=== PATIENT | female | born 1990 | race Caucasian/White ===

== ENCOUNTER 2022-09-17 12:25 | Outpatient (CLI) | payer OTHER, SELFPAY ==
--- NOTE | ~2022-09-17 | MMUS_ITS ---
EXAMINATION: MM diagnostic deb BI w ling, US breast LT limited HISTORY: Left breast mass seen on prior outside examination. Follow-up recommended. TECHNIQUE: Additional 3-D tomosynthesis images of the breasts were performed and synthetic 2-D images were generated. CAD analysis was submitted and interpreted. Limited left breast ultrasound. COMPARISON: None BREAST PARENCHYMAL COMPOSITION: Breast composed of scattered areas of fibroglandular density FINDINGS: There are no suspicious masses, calcifications or architectural distortion in the right laura ast to suggest malignancy. There is a small 5 mm mass in the upper outer quadrant of the left breast posteriorly, likely benign intramammary lymph node. Limited left breast ultrasound: Normal heterogeneous echotexture without focal solid or cystic mass. IMPRESSION: 1. Probable benign 5 mm left breast mass, upper outer quadrant. 2. Comparison outside mammograms recommended. BI-RADS Category 0: Incomplete: Needs additional imaging evaluation. Reviewed, dictated and finalized at location A. IMPRESSION: 1. Probable benign 5 mm left breast mass, upper outer quadrant. 2. Comparison outside mammograms recommended. BI-RADS Category 0: Incomplete: Needs additional imaging evaluation.
== END 2022-09-17 12:26 | disposition home or self-care (01) ==
LOC: ANHIMG 12:33
PROVIDERS: Visit Provider Nurse Practitioner Obstetrics & Gynecology
DX: R92.8 Other abnormal and inconclusive findings on diagnostic imaging of breast (principal)
CPT/HCPCS: 76642; 77062; 77066; G0279

== ENCOUNTER 2024-06-04 11:32 | Outpatient (CLI) | payer OTHER, SELFPAY ==
--- OUTSIDE RECORDS SUMMARY | 2024-06-13 10:48 | XMS_ITS | Data Portability ---
Author Organization [facility] [place] Address [address] [place] [address] Care Team Providers Care Oil Analyst Name Role Phone ORA MUSTAFA Primary Care Provider [phone] Assessment Encounter Date Assessment Date Assessment LastModified by Organization Details LastModified Time 05/24/2024 05/24/2024 Annual gynecological exam performed. Patient will come back in a year unless there are new symptoms. Not available 05/24/2024 16:14:33 Plan of Treatment Reminders Order Date Submit Date Provider Last Modified By Organization Details Last Modified Time Details Appointments IOP COLPO 2023 01:00P M Procedure Room Not available Not available Not available IOP COLPO 2023 01:00P M Ba MORA MD Not available Not available Not available Lab hbcab (hepatit is B core Ab) igm, serum 2023 024 [facility] (Lab), [address], [place], [address], 05/31/2024 04:07:55 HBsAg (hepatit is B surface Ag), serum 2023 024 [facility] (Lab), [address], [place], [address], 05/31/2024 04:07:55 hepatiti s C virus Ab, serum 2023 024 [facility] (Lab), [address], [place], [address], 05/31/2024 04:07:56 HIV 1+2 AB + HIV 1 p24 Ag, qualitat milton immunoas say, serum 2023 024 [facility] (Lab), [address], [place], [address], 05/31/2024 04:07:56 RPR (rapid plasma reagin), serum 2023 024 [facility] (Lab), [address], [place], [address], 05/31/2024 04:07:56 Referral None recorded . Procedures None recorded . Surgeries None recorded . Imaging MAMMO, diagnost ic, unilater al 2022 023 [facility], [address], [place], [address], 03/20/2023 05:00:54 US, breast, unilater al, w/ axilla 2022 023 [facility], [address], [place], [address], 03/20/2023 05:00:54 US, transvag inal 2022 023 [email or web address] [place], [facility] [address], [place], [address], 11/01/2022 20:46:34 MAMMO, diagnost ic, unilater al 2023 024 [facility], [address], [place], [address], 05/31/2024 04:07:55 US, breast, unilater al 2023 024 [facility], [address], [place], [address], 05/31/2024 04:07:55 Medication Orders Nexplano n 68 mg subderma l implant 2022 023 Not available 12/23/2022 13:36:48 estradio l 2 mg tablet 2022 023 [email or web address] [id number], [address] [place], [address], 05/24/2024 16:20:01 Patient TargetsNo targets recorded. Patient InstructionsNo instructions recorded. Reason for Referral None Reported. Results Created Date Observation Date Name Description Value Unit Range Abnormal Flag Note LastModifiedBy Organization Detail LastModifiedTime 05/24/2005/24/2024 IMAGE GUIDE D PAP AND HPV REGAR DLESS image guided Pap, HPV regardless of Pap result SEE RESULT S BELOW abnormal CASE REPOR T: Cytol ogy Gynec ologi ivan Repor t Case: [id number] Autho [email or web address] Provi magi: Margie Gtz, PATRICIO Colle cted: 05/24 1604 Order ing Locat ion: [place] [facility] Recei nuno: 05/25 0845 First Scree n: Maura Dinero Patho logis t: Brittnee Obregon MD Speci men: Johnmp brumfield Pap - Image d, Cervi x STATE MENT OF ADEQU ACY: Satis facto ry for evalu ation Trans forma tion zone compo nent absen t ----- ----- ----- ----- ----- ----- ----- ----- ----- ----- ----- ----- ----- ----- ----- ----- ----- ---- FINAL DIAGN OSIS: Epith elial Cell Abnor malit y, Squam ous Cell: Atypi ivan Squam ous Cells of Undet ermin ed Kane gibbs (ASC- US). 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 COMME NT: This speci men was revie wed by a Cytot echno logis t and/o r Patho logis t (as indic ated in this repor t) after evalu ation using the Thinp rep Imagi ng Syste m. CLINI IVAN INFOR MATIO N: Menst rual Statu s: LMP (if appli cable ): Clini ivan Histo ry/Pr eviou s Pap: Type of Neopl cristóbal (if appli cable ): Signi fican t Clini ivan Findi ngs: Other Histo ry: Hormo brinda (if appli cable ): RICHI DUMONT FOLLO W-UP: Follo w up as warra nted, based on curre nt guide lines and indiv idual patie nt consi derat ions. Not Available [facility] (Lab) [address], [place], [address], 06/04/2024 13:42:00 09/08/19 23 US, bredon t, bilat eral No observ ation record ed. [email or web address] Not Available 12:04:15 09/08/19 23 MAMMO , diagn ostic , bilat eral No observ ation record ed. [email or web address] Not Available 12:04:16 09/11/19 23 09/10/2022 US, kimmy s No observ ation record ed. [email or web address] [place] [address], [place], [address], 09/10/2022 13:34:23 09/11/19 23 09/10/2022 US, trans vagin al No observ ation record ed. [email or web address] [place] [address], [place], [address], 09/10/2022 13:34:14 09/11/19 23 09/10/2022 US, pelvi s No observ ation record ed. [email or web address] [address], [place], [address], 09/17/2022 10:26:16 10/26/19 23 09/17/2022 MAMMO , diagn ostic , digit al, bilat eral No observ ation record ed. [email or web address] [facility] [address], [place], [address], 11/01/2022 13:06:54 11/02/19 23 11/01/2022 US, trans vagin al No observ ation record ed. [place] [address], [place], [address], 11/01/2022 15:24:22 11/02/19 23 11/01/2022 US, trans vagin al No observ ation record ed. JAYASHREE [address], [place], [address], 11/04/2022 20:53:02 Result Notes None recorded. Procedures Surgical History Date Name Laterality Status Provider Name and Address Organization Details Recorded Time 05/24/20 Date of Last Pap Smear completed Freida Salazar [facility] 06/05/2024 18:52:45 12/24/19 Control Implant Removal completed Joycelyn Driver [facility]- [address], [place], [address], [facility] 12/23/2022 13:32:43 12/24/19 23 Control Implant Insertion completed Joycelyn Driver [facility]- [address], [place], [address], [place] [facility] 12/23/2022 13:32:36 10/15/19 22 Date of Last Mammogram completed [facility] 09/06/2022 11:20:16 10/15/19 22 completed [facility] 09/06/2022 11:20:16 11/19/19 21 Colposcopy completed Freida Salazar [facility] 06/05/2024 18:53:05 06/20/19 16 Colposcopy completed Freidacady Salazar [facility] 06/05/2024 18:54:35 Imaging Results Imaging Date Name Status LastModified by Organization Details LastModified Time 09/07/2022 US, breast, bilateral completed Information not available 09/13/2022 12:04:15 09/07/2022 MAMMO, diagnostic, bilateral completed Information not available 09/13/2022 12:04:16 09/10/2022 US, pelvis completed [email or web address] [place] [address], [place], [address], 09/10/2022 13:34:23 09/10/2022 US, transvaginal [email or web address] [facility] [address], [place], [address], 09/10/2022 13:34:14 09/10/2022 US, pelvis completed [email or web address] [address], [facility], [place], [address], 09/17/2022 10:26:16 09/17/2022 MAMMO, diagnostic, digital, bilateral completed [email or web address] [facility] [address], [place], [address], 11/01/2022 13:06:54 11/01/2022 US, transvaginal completed [facility]rik [facility] [address], [place], [address], 11/01/2022 15:24:22 11/01/2022 US, transvaginal completed JAYASHREE [address], [place], [address], 11/04/2022 20:53:02 Procedure Notes None recorded. Medical Equipment None Reported. Allergies No known drug allergies Medications Name Sig Start Date Stop Date Status Note LastModified by Organization Details LastModified Time lamotrigine 200 mg tablet TAKE 1 TABLET BY MOUTH EVERY DAY active Not Available Not Available No t Available fluconazole 150 mg tablet TAKE 1 TABLET (150 MG TOTAL) BY MOUTH ONCE FOR 1 DOSE. 02/24 completed Not Available Not Available Not Available meloxicam 15 mg tablet active Not Available Not Available Not Available trazodone 100 mg tablet 02/24 completed Not Available Not Available Not Available estradiol 2 mg tablet TAKE 1 TABLET BY MOUTH EVERY DAY WITH MEALS FOR 20 DAYS 05/24 completed Not Available Not Available Not Available hydroxyzine HCl 25 mg tablet 02/24 completed Not Available Not Available Not Available cefdinir 300 mg capsule TAKE 1 CAPSULE BY MOUTH 2 TIMES A DAY FOR 5 DAYS. 02/24 completed Not Available Not Available Not Available lamotrigine 100 mg tablet Take 100 mg twice a day by oral route. active Not Available Not Available No t Available progesteron e micronized 100 mg capsule TAKE 1 CAPSULE BY MOUTH EVERY DAY AT BEDTIME FOR 30 DAYS 05/24 completed Not Available Not Available Not Available aripiprazol e 5 mg tablet active Not Available Not Available Not Available bupropion HCl XL 150 mg 24 hr tablet, extended release active Not Available Not Available Not Available aripiprazol e 2 mg tablet TAKE 1 TABLET BY MOUTH EVERYDAY AT BEDTIME active Not Available Not Available No t Available Nexplanon 68 mg subdermal implant Inject 1 implant every day by subcutane ous route as directed. 2022 active Not Available Not Available Not Avai lable Nexplanon 02/24 completed Not Available Not Available Not Available BinaxNOW COVID-19 Ag Self Test kit FOLLOW INSTRUCTI ONS INCLUDED WITH THE PACKAGE. 09/06 completed Not Available Not Available Not Available Vitals Date Recorded Body height Body mass index (BMI) Body weight Systolic blood pressure Diastolic blood pressure Provider Name and Address Organization Details Last Updated DateTime 09/13/2022 172.72 cm 44.7 kg/m2 286346.1 6 g 132 mm[Hg] 78 mm[Hg] Renetta Stallings [facility] 10:04:20 Date Recorded Body height Body mass index (BMI) Body weight Provider Name and Address Organization Details Last Updated DateTime 12/23/2022 172.72 cm 45.2 kg/m2 293480.93 g Geetha Chappell [facility] 12/23/2022 12:26:35 Date Recorded Systolic blood pressure Diastolic blood pressure Provider Name and Address Organization Details Last Updated DateTime 12/23/2022 128 mm[Hg] 78 mm[Hg] Joycelyn Driver [facility]- [address], [place], [address] 12/23/2022 13:25:05 Date Recorded Body height Body mass index (BMI) Body weight Provider Name and Address Organization Details Last Updated DateTime 02/24/2023 172.72 cm 45 kg/m2 358242.34 g Geetha Chappell [facility] 02/24/2023 18:02:31 Date Recorded Systolic blood pressure Diastolic blood pressure Provider Name and Address Organization Details Last Updated DateTime 02/24/2023 122 mm[Hg] 80 mm[Hg] Joycelyn Driver [facility]- [address], [place], [address] 02/24/2023 18:17:34 Date Recorded Body height Body mass index (BMI) Body weight Systolic blood pressure Diastolic blood pressure Provider Name and Address Organization Details Last Updated DateTime 05/24/2024 172.72 cm 50 kg/m2 154257.8 9 g 137 mm[Hg] 80 mm[Hg] Amada Leigh [facility] 16:19:52 Social History Question Answer Notes LastModified by Organizat ion Details LastModified Time Tobacco Smoking Status Never Smoker Mary Ellen Weller swetha, [facility] 09/10/2022 12:11:31 Do You Have An Advance Directive? No Information n ot available 09/06/2022 What Is Your Level Of Alcohol Consumption? Moderate Information not available 09/06/2022 How Many Years Have You Consumed Alcohol? 30 Information not available 09/06/2022 Are You Blind Or Do You Have Difficulty Seeing? No Information n ot available 09/06/2022 What Is Your Level Of Caffeine Consumption? Heavy Information not available 09/06/2022 How Much Tobacco Do You Chew? None Information not available 09/06/2022 In The 14 Days Before Symptom Onset, Have You Had Close Contact With A Laboratory-confirm ed COVID-19 While That Case Was Ill? No Information n ot available 09/06/2022 In The 14 Days Before Symptom Onset, Have You Had Close Contact With A Person Who Is Under Investigation For COVID-19 While That Person Was Ill? No Information not available 09/06/2022 Have You Been To An Area Known To Be High Risk For COVID-19? No Information not available 09/06/2022 Are You Deaf Or Do You Have Serious Difficulty Hearing? No Information not available 09/06/2022 What Type Of Diet Are You Following? REGULAR Information n ot available 09/06/2022 What Is The Highest Grade Or Level Of School You Have Completed Or The Highest Degree You Have Received? 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 No Information not available 09/06/2022 Do You Use Protection During Sex? Always Information not available 09/06/2022 Do You Use Your Seat Belt Or Car Seat Routinely? Yes Information not available 09/06/2022 Do You Have Smoke And Carbon Monoxide Detectors In Your Home? Yes Information not available 09/06/2022 At What Age Did You Start Smoking Tobacco? 0 Information not available 09/06/2022 How Much Tobacco Do You Smoke? No Information not available 09/06/2022 Do You Feel Stressed (tense, Restless, Nervous, Or Anxious, Or Unable To Sleep At Night)? [id number] Information not available 09/06/2022 Do You Use Any Illicit Or Recreational Drugs? No Information not available 09/06/2022 Do You Use Sunscreen Routinely? Yes Information not available 09/06/2022 How Many Years Have You Smoked Tobacco? 0 Information not available 09/06/2022 Have You Used IV Drugs? No Information not available 09/06/2022 Sex: Unknown Functional Status Question Answer Note LastModified by Organizat ion Details LastModified Time Do you have difficulty walking or climbing stairs? No [email or web address] Information not available 09/10/2022 Are you able to walk? YESWOREST Information not available 09/06/2022 Are you able to care for yourself? Yes [email or web address] Information not available 09/10/2022 Do you have difficulty dressing or bathing? No [email or web address] Information not available 09/10/2022 What is your exercise level? Moderate Information not available 09/06/2022 Mental Status None recorded. Family History Relationship Description Onset Age of this Age Resolved Age Notes LastModified by Organization Details LastModified Time Paternal Grandfather Myocardial infarction [email or web address] Not available 12/23 12:26:46 Maternal Grandmother Disorder of thyroid gland [email or web address] Not available 2022 12:26:46 Mother Anxiety disorder [email or web address] Not available 2022 12:26:46 Mother Depressive disorder [email or web address] Not available 2022 12:26:46 Mother Hypertensive disorder [email or web address] Not available 2022 12:26:46 Mother Heart disease [email or web address] Not available 2022 12:26:46 Sister Anxiety disorder [email or web address] Not available 2022 12:26:46 Sister Depressive disorder [email or web address] Not available 2022 12:26:46 Paternal Grandmother Malignant tumor of breast [email or web address] Not available 2022 12:26:46 Maternal Aunt Malignant tumor of cervix [email or web address] Not available 2022 12:26:46 Father Hypertensive disorder [email or web address] Not available 2022 12:26:46 Father Heart disease [email or web address] Not available 2022 12:26:46 Father Diabetes mellitus [email or web address] Not available 2022 12:26:46 Maternal Grandfather Heart disease [email or web address] Not available 2022 12:26:46 Medical History Condition Response Allergies (Food, seasonal, environmental ) N Other N Breast Cancer N Drug/Latex Allergies/Reactions N Blood Transfusion N Dermatologic Disorders N Lung Disease N Defects or Inherited Disease N Breast Problem N Gestational Diabetes N Hematologic disorders N Anesthesia Complications N History of STI N Deep Vein Thrombosis N Polycystic ovary syndrome N Anxiety Disorder Y Autoimmune disease N Arthritis N Infertility N Polyps N Acid Reflux (GERD) N History of abnormal pap Y Cancer N Stroke N Varicosities N Neurologic/Epilepsy N Endometriosis N High Cholesterol N Headaches N Fibromyalgia N Kidney Disease N Heart Problems N Kidney or Bladder Problems N Thyroid Problems N GI Problems N Eating Disorder N Anemia N Art (IVF or FET) N Psychiatric Illness Y Ovarian Cancer N Diabetes N Pulmonary (TB, Asthma) N Hepatitis/Liver Disease N No Past Medical History N Eczema N Urinary Tract Infection N Abuse/Domestic Violence N Asthma N Trauma/Violence N Depression/ depression Y Heart Disease N Pre-Eclampsia N Hypertension N Osteoporosis N Thrombophilias N Gynecological History Statement/Question Response Date of Last Mammogram 10/14/2021 Flow Moderate Date of LMP 05/10/2024 N Was last menstrual period normal N STIs/STDs N 10/14/2021 Date of control 01/08/2020 Multiple Methods Desired Control Method Implant Abnormal Pap Y On BCP's at Conception? N Colposcopy 11/18/2020 HPV Vaccine N Duration of Flow (days) 7 Current Control Method Implant Age at First Child 1 Are cycles usually normal N Frequency of Cycle (Q days) 13 Sexually Active? Y Menses Monthly Y Age of first menstrual cycle 9 Date of Last Pap Smear 05/24/2024 Sexual Problems? N LMP Approximate 07/25/2019 Obstetrics History GPAL:G 0 P 0 0 0 0 Past Encounters Encounter ID Performer Location Encounter Start Date Encounter Closed Date Diagnosis/Indication Diagnosis SNOMED-CT Code Diagnosis ICD10 Code [id number] Joycelyn Driver [facility] [address] [address] 09/06/2022 11:17:47 09/08/2022 16:35:13 Abnormal uterine bleeding 1088724645 9100 N93.9 Cyst of right breast 431 8011560 1970538 N60.01 [id number] [facility] [address] [address] 09/10/2022 12:10:59 09/10/2022 13:27:41 Abnormal uterine bleeding 5234209249 9100 N93.9 [id number] Joycelyn Driver [facility] [address],[place] [address] 09/13/2022 09:56:47 09/13/2022 10:45:16 Cyst of right ovary 2437737453 2967160 N83.201 Mass of left breast 1224 600054 5747195 N63.20 [id number] [facility] [address],[place] [address] 11/01/2022 09:02:49 11/01/2022 09:34:26 Cyst of right ovary 0993159509 3212447 N83.201 [id number] Joycelyn Driver [facility] [address],[place] [address] 12/23/2022 12:14:23 12/23/2022 13:36:02 Removal of subcutaneous contraceptive 224926873 Z30.46 Insertion of subcutaneous contraceptive 352567461 Z30.9 [id number] Joycelyn Driver [facility] [address],[place] [address] 02/24/2023 17:53:21 02/25/2023 12:28:13 Contraception care management 169695965 Z30.9 [id number] RANJANA Alonso [place] [address] [address] 05/24/2024 16:08:59 05/25/2024 09:39:56 Gynecologic examination 43055033 Z01.419 Breast lump 67142753 N63 .0 Venereal d isease screening 602557303 Z11.3 Sexually t ransmitted infectious disease 9623632 A64 Contracept ion care management 464760765 Z30.9 Health Concerns Section Related Observation LastModified by Organization Detai ls LastModified Time None Recorded Concern Status LastModified by Organization Details LastModified Time None Recorded Advance Directives Directive N: Payers Encounter Date Sequence Insurance Name Policy Number Policy Oakes Covered Member ID Oakes Member ID Guarantor Name 09/13/2022 1 [facility] [employer] Lupana Amaya [id number] OI Lupana R Amaya 11/01/2022 1 [facility] [employer] Lupana Amaya [id number] OI Lupana R Amaya 12/23/2022 1 [facility] [employer] Lupana Amaya [id number] OI Lupana R Amaya 02/24/2023 1 [facility] [employer] Lupana Amaya [id number] OI Lupana R Amaya 05/24/2024 1 [facility] [employer] Lupana Amaya [id number] OI Lupana R Amaya Notes Date Note Type Note Provider Name and Address Organization Details Recorded Time 12/23/2022 text/html Here today for nexplanon removal/resinsertio n. RANJANA Holliday-ANKIT [address], [place], [address], [facility] 12/23/2022 13:34:58 02/24/2023 text/html Here today for complaints of BTB/extended menstrual bleeding since placement of nexplanon. Neg pain of abd/pelvis/flankNeg urinary sx'sNeg GI sx'sNeg N/V/F/C/DNeg Vag d/c, odor, irritation, itching RANJANA Holliday-[facility] [address], [place], [address], [place] [facility] 02/24/2023 18:19:24 05/24/2024 text/html Annual GYNReport ed bypatient.Menstrual cycle:Normal menses Urinary symptoms:No hematuria; No incontinence Vulva:No genital lesion Vagina:Normal vaginal discharge Breast:No breast pain; No breast lump; No nipple discharge Current Contraception:Subde rmal contraceptive implant Sexual complaints:No sexual complaints; No pain during intercourse; Normal libido Menopausal Symptoms:No menopausal symptoms; Normal vaginal lubrication Psychological symptoms:No depression; No anxiety; No PMDD Preventive measures:Encourage self breast examination; Encourage regular exercise; Encourage no tobacco use; Encourage regular mammograms starting age 39Notes:33yo wweBC - nexplanon, inserted 12/23/2022last pap 2020, abnormal per pt requiring colposcopy (we do not have these records)left breast lump noted on imaging 08/2022 : due for f/u 6 month imaging periods irregular with nexplanon, wants to discuss other options RANJANA Alonso [address], [place], [address], [place] [facility] 05/25/2024 09:15:11 OBGyn Episode No OBEpisode recorded.
--- OUTSIDE RECORDS SUMMARY | 2024-06-13 10:49 | XMS_ITS | Encounter Summary ---
Author Organization [facility] Address [address] [facility] [facility] [address] [place] [address] Care Team Providers Care Specialty Foods Cook Name Role Phone Bhupendra Pacheco MD Primary Care Provider [phone] Encounter Details Date Type Department Care Team (Late st Contact Info) Description 03/25/2022 Orders Only [facility] Primary Care at [address] [place] [address] Bhupendra Pacheco MD [address] [place] [address] [address] [place] [address] Bipolar II disorder (CMS/HCC) (HCC) (Primary Dx); Family planning; Cervical cancer screening Social History Tobacco Use Types Packs/Day Years Used Date Smoking Tobacco: Never PHQ-2 Answer Date Recorded PHQ-2 Total Score (If total score is 3 or more points, staff should administer the PHQ-9) 0 03/25/2022 Comments No Sex and Gender Information Value Date Recorded Sex Assigned at Not on file Legal Sex Female 12:24 PM CDT Gender Identity Not on file Sexual Orientation Not on file documented as of this encounter Plan of Treatment Not on file documented as of this encounter Visit Diagnoses Diagnosis Bipolar II disorder (CMS/HCC) (HCC)- Primary Other bipolar disorders Family planning Other general counseling and advice for contraceptive management Cervical cancer screening Screening for malignant neoplasm of the cervix documented in this encounter Care Teams Specialty Foods Cook Relationship Specialty Start Date End Date Bhupendra Pacheco MD PCP - General Family Medicine 03/25/22 documented as of this encounter
--- OUTSIDE RECORDS SUMMARY | 2024-06-13 10:49 | XMS_ITS | Encounter Summary ---
Author Organization [facility] Healthcare Address [address] [place] [address] Care Team Providers Care Infrastructure Design Engineer Name Role Phone Bhupendra Pacheco MD Primary Care Provider [phone] Encounter Details Date Type Department Care Team (Late st Contact Info) Description 05/04/2024 8:15 AM TELESERVICES REPRESENTATIVE Lab [facility] Outpatient Lab at [address] [address] Class 3 severe obesity due to excess calories without serious comorbidity with body mass index (BMI) of 40.0 to 44.9 in adult (HCC) (Primary Dx) Social History Tobacco Use Types Packs/Day Years [...] as of this encounter Visit Diagnoses Diagnosis Class 3 severe obesity due to excess calories without serious comorbidity with body mass index (BMI) of 40.0 to 44.9 in adult (HCC)- Primary documented in this encounter Care Teams Infrastructure Design Engineer Relationship Specialty Start Date End Date Bhupendra Pacheco MD PCP - General Family Medicine 03/25/22 documented as of this encounter
--- OUTSIDE RECORDS SUMMARY | 2024-06-13 10:49 | XMS_ITS | Encounter Summary ---
Author Organization [facility] Address [address] [facility] [address] [place] [address] Care Team Providers Care Mechanical Research Engineer Name Role Phone Bhupendra Pacheco MD Primary Care Provider [phone] Encounter Details Date Type Department Care Team (Late st Contact Info) Description 02/08/2023 Orders Only [facility] Outpatient Center [place] [address] [place] [address] Jennifer Tesfaye NP [phone] [address] Yeast infection (Primary Dx) Social History Tobacco Use Types [...] on file documented as of this encounter Ordered Prescriptions Prescription Sig Dispense Quantity Refills Last Filled Start Date End Date fluconazole (DIFLUCAN) 150 mg tabletIndications: Yeast infection Take 1 tablet (150 mg total) by mouth once for 1 dose 1 tablet 02/08/2023 02/08/2023 documented in this encounter Plan of Treatment Not on file documented as of this encounter Visit Diagnoses Diagnosis Yeast infection- Primary documented in this encounter Care Teams Mechanical Research Engineer Relationship Specialty Start Date End Date Bhupendra Pacheco MD PCP - General Family Medicine 03/25/22 documented as of this encounter
--- OUTSIDE RECORDS SUMMARY | 2024-06-13 10:49 | XMS_ITS | Encounter Summary ---
Author Organization [facility] Healthcare Address [address] [place] [address] Care Team Providers Care Pharmacist Per Diem Name Role Phone Bhupendra Pacheco MD Primary Care Provider [phone] Reason for Visit * Reason Comments Abdominal Pain Nausea and left uppe r quadrant pain after eating. Encounter Details Date Type Department Care Team (Late st Contact Info) Description 03/19/2024 3:45 PM CDT Office Visit [facility] at [address] [address] Karthikeyan Tejeda, PATRICIO [address] [place] [address] [address] [place] [address] Left upper quadrant pain (Primary Dx); Nausea Social History Tobacco Use Types Packs/Day Years [...] on file documented as of this encounter Last Filed Vital Signs Vital Sign Reading Time Taken Comments Blood Pressure 140/88 03/19/2024 3:32 PM CDT Pulse 88 03/19/2024 3:32 PM CDT Temperature 37.1 ??C (98.7 ??F) 03/19/2024 3:32 PM CD T Respiratory Rate 20 03/19/2024 3:32 PM CDT Oxygen Saturation 98% 03/19/2024 3:32 PM CDT Inhaled Oxygen Concentration - - Weight 136.1 kg (300 lb) 03/19/2024 3:32 PM CDT Height 174 cm (5' 8.5 ) 03/19/2024 3:32 PM CDT Body Mass Index 44.95 03/19/2024 3:32 PM CDT documented in this encounter Patient Instructions * Patient Instructions* Karthikeyan Tejeda NP - 03/19/2024 3:45 PM CDT If you have no improvement or worsening of your symptoms, please follow up with your Primary Care Provider, [facility] and or Emergency Room. I strive to provide you with EXCELLENT service. You may receive a survey after your visit today. If you cannot rate your experience as EXCELLENT, please let us know how we can improve and better meet your needs. Thank you for choosing [facility]! It was my pleasure to see you today, I hope you feel better soon! Karthikeyan Tejeda MULTI SPINDLE OPERATOR documented in this encounter Ordered Prescriptions Prescription Sig Dispense Quantity Refills Last Filled Start Date End Date ondansetron (ZOFRAN) 4 mg tabletIndications: Nausea Take 1 tablet (4 mg total) by mouth every 8 (eight) hours as needed for nausea or vomiting for up to 5 days 15 tablet 03/19/2024 4 documented in this encounter Progress Notes * Karthikeyan Tejeda NP - 03/19/2024 3:45 PM CDT Images from the original note were not included. Subjective/Objective Patient ID: Kinga Amaya is a 33 y.o. female. Chief Complaint Abdominal Pain (Nausea and left upper quadrant pain after eating. /) Pt presents to [facility] Abdominal Pain This is a new problem. Episode onset: Two days ago. The onset quality is sudden. The problem occursdaily. The problem has been waxing and waning. The pain is located in the LUQ. The pain is moderate. The abdominal pain does not radiate. Associated symptoms include nausea and vomiting (Tuesday morning only). Pertinent negatives include no constipation, diarrhea or fever. The pain is aggravated by eating. The pain is relieved by Nothing. Treatments tried: Omeprazole and Tums. The treatment provided mild relief. Her past medical history is significant for GERD. Review of Systems Constitutional: Negative for fever. Gastrointestinal: Positive for abdominal pain, nausea and vomiting (Tuesday morning only). Negative for abdominal distention, blood in stool, constipation, diarrhea and rectal pain. Genitourinary: Negative. All other systems reviewed and are negative. Physical Exam Vitals and nursing note reviewed. Constitutional: General: She is awake. She is not in acute distress. Appearance: Normal appearance. She is not ill-appearing. HENT: Head: Normocephalic and atraumatic. Cardiovascular: Rate and Rhythm: Normal rate and regular rhythm. Heart sounds: Normal heart sounds. Pulmonary: Effort: Pulmonary effort is normal. Breath sounds: Normal breath sounds. Abdominal: General: Abdomen is protuberant. Bowel sounds are normal. Palpations: Abdomen is soft. Tenderness: There is abdominal tenderness in the left upper quadrant. There is no right CVA tenderness, left CVA tenderness, guarding or rebound. Neurological: Mental Status: She is alert and oriented to person, place, and time. Gait: Gait is intact. Gait normal. Psychiatric: Mood and Affect: Mood normal. Behavior: Behavior normal. Behavior is cooperative. Vitals: 03/19/24 1532 BP: 140/88 Pulse: 88 Resp: 20 Temp: 37.1 ??C (98.7 ??F) SpO2: 98% Weight: 136.1 kg (300 lb) Height: 174 cm (5' 8.5 ) No results found. Past Medical History: Diagnosis Date Allergic Anxiety Bipolar 2 disorder ([facility]) ([facility]) Eczema Patient Active Problem List Diagnosis Bipolar II disorder ([facility]) ([facility]) Class 3 severe obesity due to excess calories without serious comorbidity with body mass index (BMI) of 40.0 to 44.9 in adult ([facility]) Morbid obesity with BMI of 40.0-44.9, adult ([facility]) Current Outpatient Medications: ARIPiprazole (ABILIFY) 2 mg tablet, Take 1 tablet (2 mg total) by mouth nightly, Disp: , Rfl: buPROPion XL (WELLBUTRIN XL) 150 mg 24 hr tablet, Take 1 tablet (150 mg total) by mouth daily, Disp: , Rfl: etonogestreL (Nexplanon) 68 mg implant, by subdermal route, Disp: , Rfl: hydrOXYzine (ATARAX) 25 mg tablet, Take 1 tablet (25 mg total) by mouth every 8 (eight) hours as needed for anxiety, Disp: , Rfl: lamoTRIgine (LaMICtal) 100 mg tablet, Take 1 tablet (100 mg total) by mouth 2 (two) times a day, Disp: 60 tablet, Rfl: 2 omeprazole (PriLOSEC) 40 mg capsule, Take 1 capsule (40 mg total) by mouth daily, Disp: , Rfl: traZODone (DESYREL) 100 mg tablet, Take 1 tablet (100 mg total) by mouth nightly, Disp: , Rfl: meloxicam (MOBIC) 15 mg tablet, TAKE 1 TABLET BY MOUTH EVERY DAY WITH FOOD (Patient not taking: Reported on 03/19/2024), Disp: 30 tablet, Rfl: 0 ondansetron (ZOFRAN) 4 mg tablet, Take 1 tablet (4 mg total) by mouth every 8 (eight) hours as needed for nausea or vomiting for up to 5 days, Disp: 15 tablet, Rfl: 0 No Known Allergies Social History Tobacco Use Smoking status: Never Smokeless tobacco: Not on file Substance and Sexual Activity Drug use: Never Sexual activity: Yes Partners: Male control/protection: Implant Alcohol Use: Not At Risk (07/25/2019) Received from [employer] [employer] Frequency of Alcohol Consumption: Never Average Number of Drinks: Not on file Frequency of Binge Drinking: Not on file No past surgical history on file. Assessment/Plan Diagnoses and all orders for this visit: Left upper quadrant pain (Primary) Nausea - ondansetron (ZOFRAN) 4 mg tablet; Take 1 tablet (4 mg total) by mouth every 8 (eight) hours as needed for nausea or vomiting for up to 5 days -discussed with patient I recommend she call tomorrow to schedule follow-up with PCP further this week. -discussed red flag symptoms for patient to go to emergency room with any new or worsening symptomssuch as fever, increased pain, vomiting, unable to keep liquids down for 24 hours etc.. Patient Education: Follow up with PCP this week Go to ED with any new or worsening symptoms. Disposition Treatment plan including expectations, follow up, and return precautions discussed with patient/parent, verbalizes understanding. Medication dosage, use, and potential adverse reactions discussed with patient/parent. Advised to follow up with PCP if symptoms do not resolve as expected or sooner if condition worsens. Signs/symptoms warranting ER evaluation reviewed. Patient and/or guardian was given an opportunity to ask questions, questions answered. Karthikeyan Tejeda NP This office note has been partially dictated using HZO software, and as a result portions of the record may have been created with this software. Occasional wrong-word or '[id number]' substitutions may have occurred due to the inherent limitations of voice recognition software. Read the chartcarefully and recognize, using context, where substitutions have occurred. documented in this encounter Plan of Treatment Not on file documented as of this encounter Visit Diagnoses Diagnosis Left upper quadrant pain- Primary Abdominal pain, left upper quadrant Nausea Nausea alone documented in this encounter Care Teams Pharmacist Per Diem Relationship Specialty Start Date End Date Bhupendra Pacheco MD PCP - General Family Medicine 03/25/22 documented as of this encounter
--- OUTSIDE RECORDS SUMMARY | 2024-06-13 10:49 | XMS_ITS | Encounter Summary ---
Author Organization [facility] Address [address] [facility] [address] [place] [address] Care Team Providers Care Bacon Skinner Name Role Phone Bhupendra Pacheco MD Primary Care Provider [phone] Encounter Details Date Type Department Care Team (Late st Contact Info) Description 02/08/2023 Orders Only [facility] Outpatient Center [place] [id number] [place] [address] Jennifer Tesfaye NP [address] [address] Acute cystitis with hematuria (Primary Dx) Social History Tobacco Use Types [...] Refills Last Filled Start Date End Date cefdinir (OMNICEF) 300 mg capsuleIndications :Acute cystitis with hematuria Take 1 capsule (300 mg total) by mouth 2 (two) times a day for 5 days 10 capsule 02/08/2023 3 documented in this encounter Plan of Treatment Not on file documented as of this encounter Visit Diagnoses Diagnosis Acute cystitis with hematuria- Primary documented in this encounter Care Teams Bacon Skinner Relationship Specialty Start Date End Date Bhupendra Pacheco MD PCP - General Family Medicine 03/25/22 documented as of this encounter
--- OUTSIDE RECORDS SUMMARY | 2024-06-13 10:49 | XMS_ITS | Encounter Summary ---
Author Organization [facility] Address [address] [facility] [address] [place] [address] Care Team Providers Care Aircraft Life Support Fitter Name Role Phone Bhupendra Pacheco MD Primary Care Provider [phone] Encounter Details Date Type Department Care Team (Late st Contact Info) Description 03/31/2022 Telephone [facility] Primary Care at [address] [place] [address] Bhupendra Pacheco MD [address] [place] [address] [address] [place], [place] [address] Social History Tobacco Use Types Packs/Day Years [...] on file documented as of this encounter Miscellaneous Notes * Telephone Encounter - Saundra Tsai MA - 03/31/2022 3:34 PM CDT Bhupendra Pacheco MD P Bjg Im/Fm Pcp [facility] Clinical Pool Normal blood work, no concerns Pt aware * Telephone Encounter - Saundra Tsai MA - 03/31/2022 3:34 PM CDT ----- Message from Bhupendra Pacheco MD sent at 03/31/2022 10:03 AM CDT ----- Normal elbow xray, no significant findings, pain is likely muscle or nerve related, may just take time to improve documented in this encounter Plan of Treatment Not on file documented as of this encounter Visit Diagnoses Not on filedocumented in this encounter Care Teams Aircraft Life Support Fitter Relationship Specialty Start Date End Date Bhupendra Pacheco MD PCP - General Family Medicine 03/25/22 documented as of this encounter
--- OUTSIDE RECORDS SUMMARY | 2024-06-13 10:49 | XMS_ITS | Encounter Summary ---
Author Organization [facility] Healthcare Address [address] [place] [address] Care Team Providers Care Blister Packing Machine Tender Name Role Phone Bhupendra Pacheco MD Primary Care Provider [phone] Encounter Details Date Type Department Care Team (Latest Contact Info) Description 02/06/2023 2:49 PM CDT - 02/06/2023 11:59 PM CDT Hospital Encounter [address] [address] Vaginal spotting; Abdominal cramping Discharge Disposition: Discharge to home or self care Social History Tobacco Use Types Packs/Day Years [...] on file documented as of this encounter Medications at Time of Discharge ARIPiprazole (ABILIFY) 2 mg tablet Take 1 tablet (2 mg total) by mouth nightly 02/02/2023 etonogestreL (Nexplanon) 68 mg implant by subdermal route 12/23/2022 hydrOXYzine (ATARAX) 25 mg tablet Take 1 tablet (25 mg total) by mouth every 8 (eight) hours as needed for anxiety lamoTRIgine (LaMICtal) 100 mg tablet Take 1 tablet (100 mg total) by mouth 2 (two) times a day 60 tablet 2 08/27/2022 omeprazole (PriLOSEC) 40 mg capsule Take 1 capsule (40 mg total) by mouth daily traZODone (DESYREL) 100 mg tablet Take 1 tablet (100 mg total) by mouth nightly documented as of this encounter Discharge Disposition Disposition Code Departure Means Destination Discharge to home or self care documented in this encounter Miscellaneous Notes * Result Encounter Note - Shannon Kline MA - 02/06/2023 11:59 PM CDT Patient verified that she is not or * Result Encounter Note - Jennifer Tesfaye NP - 02/06/2023 11:59 PM CDT Please call patient to alert her that urine culture was positive for a urinary tract infection. Antibiotic sent to pharmacy on file. Please start this today. She should f/u with PCP if s/s persist. * Result Encounter Note - Shannon Kline MA - 02/06/2023 11:59 PM CDT Pt has started ABX documented in this encounter Plan of Treatment Not on file documented as of this encounter Procedures Procedure Name Priority Date/Time Associated Diagnosis Comments N. GONORRHOEAE/C. TRACHOMATIS AMPLIFICATION Routine 02/06/2023 2:49 PM CDT Vaginal spotting Abdominal cramping VAGINITIS PANEL Routine 02/06/2023 2:49 PM CDT Vaginal spotting Abdominal cramping URINE CULTURE Routine 02/06/2023 2:49 PM CDT Vaginal spotting Abdominal cramping documented in this encounter Results * (ABNORMAL) Urine culture Urine, clean voided (02/06/2023 2:49 PM CDT) Report Final Report: Less than 100,000 colonies/mL (clinically insignificant growth based on current clinical standards) Includes the following: Less than 100,000 colonies/mL Streptococcus agalactiae (Group B Streptococci) * ??* ??* ??* ??* ??* ??* ??* ??* ??* ??* ??* ??* ??* ??* ??* ??* ??* ??* ??* Resistance to penicillin in Group B Streptococcus has not been reported. ??Group B Streptococci are universally susceptible to beta-lactam antibiotics and vancomycin. Routine susceptibility testing is not performed. In penicillin allergic patients, please contact the laboratory at [phone] to request susceptibility testing * ??* ??* ??* ??* ??* ??* ??* ??* ??* ??* ??* ??* ??* ??* ??* ??* ??* ??* ??* This laboratory routinely screens urine cultures for any amount of Group B Streptococcus in reproductive age women. ??Recovery of this isolate may be significant in women, however, the recovery of this organism in small quantities in non- women represents contamination with periurethral neil. (.) [facility] Comment:Testing performed by : [facility], [address] [place]., [address] Organism STREPTOCOCCUS AGALACTIAE (GROUP B STREPTOCOCCI) MAGGY Organism (CLINICALLY INSIGNIFICANT GROWTH [facility] Urine, clean voided 02/06/2023 2:49 PM CDT 02/06/2023 7:57 PM CDT Narrative [facility] - 02/08/2023 11:14 AM CDT Testing performed by [facility] ([phone]) us Karthikeyan Tejeda NP LAB MICROBIOLOGY - GENERAL JACKIE RANGEL Final Result [facility] [id number] Department [place] [address] * N. gonorrhoeae/C. trachomatis Amplification Urine (02/06/2023 2:49 PM CDT) C. trachomatis source urine [facility] C. trachomatis RNA Negative Negative [facility] Comment: ADDITIONAL INFORMATION This report is intended for use in clinical monitoring and management of patients. It is not intended for use in medical-legal applications. N. gonorrhoeae source urine [facility] N. gonorrhoeae RNA Negative Negative [facility] Comment: ADDITIONAL INFORMATION This report is intended for use in clinical monitoring and management of patients. It is not intended for use in medical-legal applications. Test Performed by: [place] [id number] Flat Polisher: Zackery Oneill M.D. Ph.D.; CLIA# [id number] Urine (None) 02/06/2023 2:49 PM CDT 02/06/2023 4:38 PM CDT Karthikeyan Tejeda NP LAB MICROBIOLOGY - GENERAL JACKIE RANGEL Final Result [facility] [id number] [address] Department [place] [address] * (ABNORMAL) Vaginitis panel Vaginal (02/06/2023 2:49 PM CDT) [facility] Saumya DNA probe Detected(A) Not Detected [facility] Comment:Testing performed by : [facility], [address] [place] [address], [place]., [address] Gardnerella DNA probe Not Detected Not Detected [facility] Comment:Testing performed by : [facility], [address] [place] [address]., [address] Trichomonas DNA probe Not Detected Not Detected [employer] [facility] [facility] Comment: Interpretive Data Testing performed by [facility] via [employer] VPIII Microbial Identification Test, a DNA probe test for use in the detection and identification of Saumya species, Gardnerella vaginalis and Trichomonas vaginalis nucleic acid in vaginal fluid specimens from patients with symptoms of vaginitis/vaginosis. Negative results for these tests suggest the patient does not have candidiasis, bacterial vaginosis and/or trichomoniasis when consistent with clinical signs and symptoms. Current interpretive data was last revised on 2020. Testing performed by: [facility], [facility] [facility], [place]., [address] Vaginal 02/06/2023 2:49 PM CDT 02/07/2023 1:28 PM CDT Karthikeyan Tejeda NP LAB MICROBIOLOGY - GENERAL JACKIE RANGEL Final Result [facility] [id number] [address] Department [place] [address] documented in this encounter Visit Diagnoses Diagnosis Vaginal spotting Other specified noninflammatory disorder of vagina Abdominal cramping Abdominal pain, unspecified site documented in this encounter Care Teams Blister Packing Machine Tender Relationship Specialty Start Date End Date Bhupendra Pacheco MD PCP - General Family Medicine 03/25/22 documented as of this encounter
--- OUTSIDE RECORDS SUMMARY | 2024-06-13 10:49 | XMS_ITS | Referral Summary ---
Author Organization [facility] Address [address] [address] Phone Care Team Providers Care Sign Erector Name Role Phone Bhupendra Pacheco MD Primary Care Provider [phone] Encounters Date Type Department Care Team Description 05/04/2024 6:46 PM RESIDENTIAL THERAPIST - 05/04/2024 11:59 PM RESIDENTIAL THERAPIST Hospital Encounter [address] [address] Exposure to syphilis Discharge Disposition: Discharge to home or self care 05/04/2024 8:15 AM RESIDENTIAL THERAPIST Lab [facility] Outpatient Lab at [address] [address] Class 3 severe obesity due to excess calories without serious comorbidity with body mass index (BMI) of 40.0 to 44.9 in adult (HCC) (Primary Dx) 05/03/2024 7:27 PM RESIDENTIAL THERAPIST - 05/03/2024 11:59 PM RESIDENTIAL THERAPIST Hospital Encounter [address] [address] Exposure to syphilis Discharge Disposition: Discharge to home or self care 05/03/2024 7:15 PM RESIDENTIAL THERAPIST Office Visit [facility] Convenient Care at [address] [address] Danielle Patel NP Exposure to syphilis (Primary Dx) 03/19/2024 3:45 PM CDT Office Visit [facility] Convenient Care at [address] [address] Tejeda, Ranita, SUPERVISOR OF OPERATIONS Left upper quadrant pain (Primary Dx); Nausea from Last 3 Months Allergies No known active allergies Medications hydrOXYzine (ATARAX) 25 mg tablet Take 1 tablet (25 mg total) by mouth every 8 (eight) hours as needed for anxiety Active traZODone (DESYREL) 100 mg tablet Take 1 tablet (100 mg total) by mouth nightly Active omeprazole (PriLOSEC) 40 mg capsule Take 1 capsule (40 mg total) by mouth daily Active lamoTRIgine (LaMICtal) 100 mg tablet Take 1 tablet (100 mg total) by mouth 2 (two) times a day 60 tablet 2 08/28/19 23 Active ARIPiprazole (ABILIFY) 2 mg tablet Take 1 tablet (2 mg total) by mouth nightly 02/03/20 23 Active etonogestreL (Nexplanon) 68 mg implant by subdermal route 12/24/19 23 Active buPROPion XL (WELLBUTRIN XL) 150 mg 24 hr tablet Take 1 tablet (150 mg total) by mouth daily 11/23/19 24 Active meloxicam (MOBIC) 15 mg tabletIndications:Left foot pain,Capsulitis of metatarsophalangeal (MTP) joint of left foot TAKE 1 TABLET BY MOUTH EVERY DAY WITH FOOD 30 tablet 01/27/20 24 Active Additional Information Patient not taking.Reported on 03/19/2024 Active Problems Problem Noted Date Diagnosed Date Bipolar II disorder ([facility]) 03/25/2022 Assessment & Plan (03/25/2022 2:13 PM CDT): Stable at this time. Will continue current regimen, and refer to psych to get her established. Class 3 severe obesity due t o excess calories without serious comorbidity with body mass index (BMI) of 40.0 to 44.9 in adult 03/25/2022 Assessment & Plan (03/25/2022 2:24 PM CDT): BMI Follow-up includes: nutrition counseling and exercise counseling. Morbid obesity with BMI of 40.0-44.9, adult 11/2021 Assessment & Plan (03/25/2022 2:24 PM CDT): Not at goal. Diet and lifestyle changes recommended Immunizations Name Administration Dates Next Due Influenza, Unspecified 03/25/2022(Deferr ed: Patient Refused),08/19/2021(Deferred: Patient Refused) Moderna SARS-CoV-2 Monovalen t Vaccination (12+ YRS) 08/27/2020,07/28/2020 Social History Tobacco Use Types Packs/Day Years Used Date Smoking Tobacco: Never Tobacco Cessation:Counseling Given: Not Answered PHQ-2 Answer Date Recorded PHQ-2 Total Score (If total score is 3 or more points, staff should administer the PHQ-9) 0 03/25/2022 Comments No Sex and Gender Information Value Date Recorded Sex Assigned at Not on file Legal Sex Female 12:24 PM CDT Gender Identity Not on file Sexual Orientation Not on file Last Filed Vital Signs Vital Sign Reading Time Taken Comments Blood Pressure 136/86 05/03/2024 7:15 PM RESIDENTIAL THERAPIST Pulse 78 05/03/2024 7:15 PM RESIDENTIAL THERAPIST Temperature 36.8 ??C (98.3 ??F) 05/03/2024 7:15 PM CS T Respiratory Rate 20 05/03/2024 7:15 PM RESIDENTIAL THERAPIST Oxygen Saturation 99% 05/03/2024 7:15 PM RESIDENTIAL THERAPIST Inhaled Oxygen Concentration - - Weight 136.1 kg (300 lb) 05/03/2024 7:15 PM RESIDENTIAL THERAPIST Height 175.3 cm (5' 9 ) 05/03/2024 7:15 PM RESIDENTIAL THERAPIST Body Mass Index 44.3 05/03/2024 7:15 PM RESIDENTIAL THERAPIST Plan of Treatment Not on file Procedures Procedure Name Priority Date/Time Associated Diagnosis Comments HIV 1/2 ANTIBODY PLUS P24 ANTIGEN Routine 05/04/2024 8:26 AM RESIDENTIAL THERAPIST Exposure to syphilis RPR Routine 05/04/2024 8:26 AM RESIDENTIAL THERAPIST Exposure to syphilis HEPATITIS PANEL, ACUTE Routine 8:26 AM RESIDENTIAL THERAPIST Exposure to syphilis VAGINITIS PANEL Routine 05/03/2024 7:27 PM RESIDENTIAL THERAPIST Exposure to syphilis N. GONORRHOEAE/C. TRACHOMATIS AMPLIFICATION Routine 05/03/2024 7:27 PM RESIDENTIAL THERAPIST Exposure to syphilis from Last 3 Months Results * HIV 1/2 Antibody plus p24 Antigen Blood (05/04/2024 8:26 AM RESIDENTIAL THERAPIST) HIV 1/2 ab + p24 ag Nonreactive Nonreactive Comment: Nonreactive for HIV-1 antigen and HIV-1/HIV-2 antibodies. No laboratory evidence of HIV infection. If acute HIV infection is suspected, consider testing for HIV-1 RNA. Blood 05/04/2024 8:26 AM RESIDENTIAL THERAPIST 05/04/2024 7:24 PM RESIDENTIAL THERAPIST us Danielle Patel NP LAB MICROBIOLOGY - GENERAL ORDERABLES Final Result [facility] [address] Department [place] [address] * Hepatitis panel, acute Blood (05/04/2024 8:26 AM RESIDENTIAL THERAPIST) Pathologist [facility] Hep A IgM Nonreactive Nonreactive Comment: Interpretive Data: If Hep A IgM Ab is reported as Equivocal, a new sample should be drawn in two weeks for testing. Current interpretive data was last revised on 19. Hep B core IgM Nonreactive Nonreactive [facility] Comment: Interpretive Data If HepB Core IgM Ab is reported as Equivocal, a new sample should be drawn in two weeks for testing. Current interpretive data was last revised on 19. Hep C Ab Nonreactive Nonreactive [facility] Comment: Interpretive Data Nonreactive: Antibodies to HCV not detected. Does NOT exclude the possibility of recent exposure to HCV. Equivocal: Equivocal for HCV antibodies. Supplemental molecular testing will be automatically performed to determine infection status in accordance with current CDC screening recommendations. ?? Reactive: Positive for HCV antibodies. ??This may represent current or past HCV infection. Supplemental molecular testing will be automatically performed to determine ??current infection status in accordance with current CDC screening recommendations. Interpretive data was last revised on 2019. HepBsAg Nonreactive Nonreactive [facility] Blood 05/04/2024 8:26 AM RESIDENTIAL THERAPIST 05/04/2024 7:24 PM RESIDENTIAL THERAPIST Danielle Patel NP LAB MICROBIOLOGY - GENERAL ORDERABLES Final Result Performing Organization Address City/[facility] Co de Phone Number TISHAZORAN ZHOU [address] [facility] [place] [address] * RPR Blood (05/04/2024 8:26 AM RESIDENTIAL THERAPIST) RPR Nonreactive Nonreactive Blood 05/04/2024 8:26 AM RESIDENTIAL THERAPIST 05/04/2024 7:24 PM RESIDENTIAL THERAPIST Danielle Patel NP LAB MICROBIOLOGY - GENERAL ORDERABLES Final Result Performing Organization Address [facility] de Phone Number TISHAZORAN ZHOU [address] [facility] [place] [address] * N. gonorrhoeae/C. trachomatis Amplification Vaginal (05/03/2024 7:27 PM RESIDENTIAL THERAPIST) C. trachomatis Not Detected [facility] Comment:Testing performed by : [facility], [address] [place] [address]., [address] N. gonorrhoeae Not Detected [facility] Comment: Interpretive Data This assay detects Chlamydia trachomatis and Neisseria gonorrhoeae by nucleic acid amplification testing (NAAT). This assay has been cleared by the [place] Food and Drug administration. The performance characteristics of this test have been verified by the [facility] Molecular Infectious Disease laboratory. The performance characteristics of this test have not been evaluated in individuals less than 14 years of age. Current Interpretive Data was last revised on 2023. Testing performed by: [facility], [address] [place] [address]., [id number] Vaginal (None) 05/03/2024 7: 27 PM RESIDENTIAL THERAPIST 05/04/2024 10:43 AM RESIDENTIAL THERAPIST Danielle Patel NP LAB MICROBIOLOGY - GENERAL ORDERABLES Final Result Performing Organization Address City/[facility] Co de Phone Number [facility] WINNIE [address] Department [place] [address] [facility] * Vaginitis panel Vaginal (05/03/2024 7:27 PM RESIDENTIAL THERAPIST) Saumya DNA probe Not Detected Not Detected Comment:Testing performed by : [facility], [address] [place] [address]., [address] Gardnerella DNA probe Not Detected Not Detected [facility] Comment:Testing performed by : [facility], [address] [place] [address]., [address] Trichomonas DNA probe Not Detected Not Detected [facility] Comment: Interpretive Data Testing performed by [facility] via Affirm VPIII Microbial Identification Test, a [...] last revised on 2020. Testing performed by: [facility], [address] [place] [address]., [address] Vaginal 05/03/2024 7:27 PM RESIDENTIAL THERAPIST 05/04/2024 1:04 PM RESIDENTIAL THERAPIST Danielle Patel NP LAB MICROBIOLOGY - GENERAL ORDERABLES Final Result [facility] [address] Department [place] [address] from Last 3 Months [facility] [id number] Member Subscriber Plan / Payer (Ef fective 2021-Present) Name:Kinga Amaya Member ID:[id number] Relation to Subscriber:Self Name:Kinga Amaya Subscriber ID:[id number] Payer ID:[id number] Type:[employer] HMO/PPO Address: [address] [place] [id number] [facility] [address] Care Teams Sign Erector Relationship Specialty Start Date End Date Bhupendra Pacheco MD PCP - General Family Medicine 03/25/22
--- OUTSIDE RECORDS SUMMARY | 2024-06-13 10:49 | XMS_ITS | Continuity of Care Document ---
Author Organization [facility] [place] Address [address] [place] [address] Care Team Providers Care Student Life Coordinator Name Role Phone ORA MUSTAFA Primary Care Provider Assessment Encounter Date Assessment Date Assessment LastModified by Organization Details LastModified Time 05/24/2024 05/24/2024 Annual gynecological exam performed. Patient will come back in a year unless there are new symptoms. [email or web address] Not available 05/24/2024 16:14:33 Plan of Treatment Reminders Order Date Submit Date Provider Last Modified By Organization Details Last Modified Time Details Appointments IOP COLPO 2023 01:00P M Procedure Room Not available Not available Not available IOP COLPO 2023 01:00P M Ba MORA MD Not available Not available Not available Lab hbcab (hepatit is B core Ab) igm, serum 2023 024 [facility] (Lab), [address], [place], [address], 05/31/2024 04:07:55 HBsAg (hepatit is B surface Ag), serum 2023 024 [facility] (Lab), [address], [place], [address], 05/31/2024 04:07:55 hepatiti s C virus Ab, serum 2023 024 [facility] (Lab), [address], [place], [address], 05/31/2024 04:07:56 HIV 1+2 AB + HIV 1 p24 Ag, qualitat milton immunoas say, serum 2023 024 [facility] (Lab), [address] [facility] [address], [place], [address], 05/31/2024 04:07:56 RPR (rapid plasma reagin), serum 2023 024 [facility] (Lab), [address], [place], [address], 05/31/2024 04:07:56 Referral None recorded . Procedures None recorded . Surgeries None recorded . Imaging MAMMO, diagnost ic, [facility] 2023 [facility], [address], [address], [place], [address], 05/31/2024 04:07:55 US, breast, [facility] 2023 024 [facility], [address], [address], [place], [address], 05/31/2024 04:07:55 Medication Orders None recorded . Patient TargetsNo targets recorded. Patient InstructionsNo instructions recorded. Reason for Referral None Reported. Procedures Surgical History Date Name Laterality Status Provider Name and Address Organization Details Recorded Time 05/24/20 24 Date of Last Pap Smear completed Freida Salazar [facility] 06/05/2024 18:52:45 12/24/19 23 Control Implant Removal completed Joycelyn Driver [facility] [address], [place], [address], [facility] 12/23/2022 13:32:43 12/24/19 23 Control Implant Insertion completed Joycelyn Driver [facility] [address], [place], [address], [facility] 12/23/2022 13:32:36 10/15/19 22 Date of Last Mammogram completed [facility] 09/06/2022 11:20:16 10/15/19 22 completed [facility] 09/06/2022 11:20:16 11/19/19 21 Colposcopy completed [facility] 06/05/2024 18:53:05 06/20/19 16 Colposcopy completed [facility] 06/05/2024 18:54:35 Imaging Results None recorded. Procedure Notes None recorded. Medical Equipment None [...] Updated DateTime 05/24/2024 172.72 cm 50 kg/m2 757751.8 9 g 137 mm[Hg] 80 mm[Hg] Amada Leigh [facility] 16:19:52 Social History Question Answer Notes LastModified by Organizat ion Details LastModified Time Tobacco Smoking Status Never Smoker Mary Ellen Weller [email or web address], [facility] 09/10/2022 12:11:31 Do You Have An [...] Or The Highest Degree You Have Received? 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 [id number] Information not available 09/06/2022 Do You Use [...] have difficulty walking or climbing stairs? No [email or web address] Information not available 09/10/2022 Are you able to walk? YESWOREST Information not available 09/06/2022 Are you able to care for yourself? Yes [email or web address] Information not available 09/10/2022 Do you have difficulty dressing or bathing? No [email or web address] Information not available 09/10/2022 What is your [...] Diagnosis/Indication Diagnosis SNOMED-CT Code Diagnosis ICD10 Code 197581 RANJANA Alonso [place] [address] [address] 05/24/2024 16:08:59 05/25/2024 09:39:56 Gynecologic examination 72991375 Z01.419 Breast lump 72140252 N63 .0 Venereal d isease screening 143662842 Z11.3 Sexually t ransmitted infectious disease 3462829 A64 Contracept ion care management 723693066 Z30.9 Health Concerns Section Related Observation LastModified by Organization Detai ls LastModified Time None Recorded Concern Status LastModified by Organization Details LastModified Time None Recorded Payers Encounter Date Sequence Insurance Name Policy Number Policy Oakes Covered Member ID Oakes Member ID Guarantor Name 05/24/2024 1 [facility] Kinga Amaya [id number] OI Kinga Amaya Notes Date Note Type Note Provider Name and Address Organization Details Recorded Time 05/24/2024 text/html Annual GYNReport ed bypatient.Menstrual cycle:Normal [...] to discuss other options RANJANA Alonso [address], [place], [address], [facility] [place] 05/25/2024 09:15:11 OBGyn Episode No OBEpisode recorded.
--- OUTSIDE RECORDS SUMMARY | 2024-06-13 10:49 | XMS_ITS | Encounter Summary ---
Author Organization [facility] Address [address] [place] [address] Care Team Providers Care Shoe Associate Name Role Phone Bhupendra Pacheco MD Primary Care Provider [phone] Encounter Details Date Type Department Care Team (Late st Contact Info) Description 03/26/2022 Telephone [facility] Primary Care at [address] [place] [address] Bhupendra Pacheco MD [address] [place] [address] [address] [place], [place] [id number] Social History Tobacco Use Types Packs/Day Years [...] encounter Miscellaneous Notes * Telephone Encounter - Kimmie Kat MA - 03/30/2022 8:43 AM CDT RG requesting last 5 yrs. * Telephone Encounter - Kimmie Kat MA - 03/26/2022 10:42 AM CDT Please advise. * Telephone Encounter - Padmini Aguilar - 03/26/2022 10:36 AM CDT RG: For the records request for this pt, how far back do you want me to go? And are you wanting allrecords or just specific things? Please advise. documented in this encounter Plan of Treatment Not on file documented as of this encounter Visit Diagnoses Not on filedocumented in this encounter Care Teams Shoe Associate Relationship Specialty Start Date End Date Bhupendra Pacheco MD PCP - General Family Medicine 03/25/22 documented as of this encounter
--- OUTSIDE RECORDS SUMMARY | 2024-06-13 10:49 | XMS_ITS | Encounter Summary ---
Author Organization [facility] Address [address] [place] [address] Care Team Providers Care Medical Logistics Specialist Name Role Phone Bhupendra Pacheco MD Primary Care Provider [phone] Reason for Visit * Diagnostic Imaging (Routine) - Closed Specialty Diagnoses / Procedures Referred By Vasquez t Referred To Contact Diagnoses Left foot pain Procedures XR Foot Left 3 or More Views Gloria Kwon MD Phone: tel: fax: [facility] Referral ID Status Reason Start Date Expiration Date Visits Re quested Visits Authorized [id number] Closed 12/30/2023 01/28/2025 1 1 Encounter Details Date Type Department Care Team (Late st Contact Info) Description 12/30/2023 12:30 PM CDT Ancillary Procedure [facility] Imaging at [address] [address] Left foot pain Social History Tobacco Use Types Packs/Day Years [...] Procedure Name Priority Date/Time Associated Diagnosis Comments XR FOOT LEFT 3 OR MORE VIEWS Schedule Routine, Read Routine (OP Routine) 12/30/2023 12:00 PM CDT Left foot pain documented in this encounter Results * XR Foot Left 3 or More Views (12/30/2023 12:00 PM CDT) Anatomical Region Laterality Modality Lower Extremities, Foot Left Digital Radiography 01/01/2024 9:31 AM CDT Narrative 01/01/2024 9:32 AM CDT EXAM DESCRIPTION: XR FOOT LEFT 3 OR MORE VIEWS REASON FOR STUDY: pain ?? Pt complains of 2nd metatarsal pain after walking around two weeks ago. No prior surgery to the foot. Pt states the toe ring can't come off ? FINDINGS: Three views nonweightbearing submitted without comparison. No acute fractures are identified. ??There is mild midfoot osteoarthritis. ?? There is mild 1st metatarsophalangeal joint osteoarthritis. ??Small heel spur is present. IMPRESSION: No acute fracture. ??If persistent clinical concern for an occult stress fracture, may consider further evaluation with MRI. ?? 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 THIS IS AN ELECTRONICALLY VERIFIED FINAL REPORT 01/01/2024 9:32 AM - Electronically signed by ??Ady Ashby M.D. D: ??01/01/2024 9:32 AM T: Report ID: [id number] Reading Location: ??[id number] Procedure Note Ady Ashby MD - 01/01/2024 EXAM DESCRIPTION: XR FOOT LEFT 3 OR MORE VIEWS REASON FOR STUDY: pain Pt complains of 2nd metatarsal pain after walking around two weeks ago. No prior surgery to the foot. Pt states the toe ring can't come off FINDINGS: Three views nonweightbearing submitted without comparison. No acute fractures are identified. There is mild midfoot osteoarthritis. There is mild 1st metatarsophalangeal joint osteoarthritis. Small heelspur is present. IMPRESSION: No acute fracture. If persistent clinical concern for an occult stress fracture, may consider further evaluation with MRI. 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 THIS IS AN ELECTRONICALLY VERIFIED FINAL REPORT 01/01/2024 9:32 AM - Electronically signed by Ady Ashby M.D. T: Report ID: [id number] Reading Location: [id number] Gloria Kwon MD IMG XR PROCEDURES Rose l Result documented in this encounter Visit Diagnoses Diagnosis Left foot pain Pain in soft tissues of limb documented in this encounter Care Teams Medical Logistics Specialist Relationship Specialty Start Date End Date Bhupendra Pacheco MD PCP - General Family Medicine 03/25/22 documented as of this encounter
--- OUTSIDE RECORDS SUMMARY | 2024-06-13 10:49 | XMS_ITS | Encounter Summary ---
Author Organization [facility] Address [address] [place] [address] Care Team Providers Care Business Law Professor Name Role Phone Bhupendra Pacheco MD Primary Care Provider [phone] Reason for Visit * Reason Onset Date Comments Medical Question/Miscellaneous 07/26/2022 Call Back 07/26/2022 Encounter Details Date Type Department Care Team (Late st Contact Info) Description 07/26/2022 Telephone [facility] Primary Care at [address] [place] [address] Bhupendra Pacheco MD [address] [place] [address] [address] [place] [address] Medical Question/Miscellaneous ; Call Back Social History Tobacco Use Types Packs/Day Years [...] encounter Miscellaneous Notes * Telephone Encounter - Shira Anthony - 07/26/2022 2:40 PM CST Call Back Caller???s Concern: Behavior Health told patient they only scheduled 2 weeks out in advance. She has to call every day to try to get an appt. Caller???s Call back #: [phone]. Does message need to be routed? Yes-Action Needed N RESOURCES COMPENSATION ANALYST * Telephone Encounter - Clarisa Vidal MA - 07/26/2022 2:11 PM CST Attempted to contact Kinga with no answer. LMOM to contact the office back. If Kinga calls back, r/s her till after her appt with behavior health. N RESOURCES COMPENSATION ANALYST * Telephone Encounter - Clarisa Vidal MA - 07/26/2022 1:[address] Pacheco please review message regarding r/s appt if needed? N RESOURCES COMPENSATION ANALYST * Telephone Encounter - Pascual Lee - 07/26/2022 1:39 PM CST Call Back Caller???s Concern: Patient was able to reach behavioral health but was unable to schedule as they only schedule two week out. She has a follow up appt set for 07/27/[address] Pacheco, does she need to reschedule this appt until she can be seen in [facility]. Patient requesting call back. Sending high priority Caller???s Call back #: [phone] Does message need to be routed? Yes-Action Needed N RESOURCES COMPENSATION ANALYST documented in this encounter Plan of Treatment Not on file documented as of this encounter Visit Diagnoses Not on filedocumented in this encounter Care Teams Business Law Professor Relationship Specialty Start Date End Date Bhupendra Pacheco MD PCP - General Family Medicine 03/25/22 documented as of this encounter
--- OUTSIDE RECORDS SUMMARY | 2024-06-13 10:49 | XMS_ITS | Encounter Summary ---
Author Organization [facility] Healthcare Address [address] [place] [id number] Care Team Providers Care Patrol Community Service Officer Name Role Phone Bhupendra Pacheco MD Primary Care Provider [phone] Reason for Visit * Reason Comments STI Screening Was exposed to syphi lis. Entered by patient Encounter Details Date Type Department Care Team (Late st Contact Info) Description 05/03/2024 7:15 PM MOTORMAN/WOMAN Office Visit [facility] at [address] [address] Danielle Patel, TOBACCO STEMMER [address] [place] [id number] Exposure to syphilis (Primary Dx) Social History Tobacco Use Types [...] Comments Blood Pressure 136/86 05/03/2024 7:15 PM MOTORMAN/WOMAN Pulse 78 05/03/2024 7:15 PM MOTORMAN/WOMAN Temperature 36.8 ??C (98.3 ??F) 05/03/2024 7:15 PM CS T Respiratory Rate 20 05/03/2024 7:15 PM MOTORMAN/WOMAN Oxygen Saturation 99% 05/03/2024 7:15 PM MOTORMAN/WOMAN Inhaled Oxygen Concentration - - Weight 136.1 kg (300 lb) 05/03/2024 7:15 PM MOTORMAN/WOMAN Height 175.3 cm (5' 9 ) 05/03/2024 7:15 PM MOTORMAN/WOMAN Body Mass Index 44.3 05/03/2024 7:15 PM MOTORMAN/WOMAN documented in this encounter Patient Instructions * Patient Instructions* Danielle Patel NP - 05/03/2024 7:15 PM MOTORMAN/WOMAN If you have no improvement or worsening of your symptoms, please follow up with your Primary Care Provider, Pending [facility] To [facility] and or Emergency Room. I strive to provide you with EXCELLENT service. You may receive a survey after your visit today. If you cannot rate your experience as EXCELLENT, please let us know how we can improve and better meet your needs. Thank you for choosing [facility]! It was my pleasure to see you today, I hope you feel better soon! Danielle Patel EAR FLAP BINDER If your testing for syphilis is negative, recommend retesting at 6 and 12 months to rule out. RMAN/WOMAN * Attachments The following attachments cannot be sent through Care Everywhere. * Syphilis (AfterCare(R) Instructions(ER/ED)) ([facility]) documented in this encounter Progress Notes * Danielle Patel NP - 05/03/2024 7:15 PM CST Images from the original note were not included. Subjective/Objective Patient ID: Kinga Amaya is a 33 y.o. female. Chief Complaint STI Screening (Was exposed to syphilis. Entered by patient) 33 year old female patient presents today with complaints of wanting STI testing. Patient denies any active symptoms. Reports she was told by a previous partner 1 week ago that she was possibly exposed to syphilis. Reports that she had intercourse with this person 2 months ago. Patient reports no chance of , has a Nexplanon. Review of Systems All other systems reviewed and are negative. Physical Exam Vitals reviewed. Constitutional: Appearance: Normal appearance. She is normal weight. HENT: Head: Normocephalic. Right Ear: External ear normal. Left Ear: External ear normal. Nose: Nose normal. Mouth/Throat: Mouth: Mucous membranes are moist. Eyes: Extraocular Movements: Extraocular movements intact. Cardiovascular: Rate and Rhythm: Normal rate. Pulses: Normal pulses. Pulmonary: Effort: Pulmonary effort is normal. Musculoskeletal: General: Normal range of motion. Cervical back: Normal range of motion. Skin: General: Skin is warm and dry. Capillary Refill: Capillary refill takes less than 2 seconds. Neurological: General: No focal deficit present. Mental Status: She is alert and oriented to person, place, and time. Mental status is at baseline. Psychiatric: Mood and Affect: Mood normal. Behavior: Behavior normal. Thought Content: Thought content normal. Judgment: Judgment normal. Vitals: 05/03/24 1915 BP: 136/86 BP Location: Left arm Patient Position: Sitting Pulse: 78 Resp: 20 Temp: 36.8 ??C (98.3 ??F) TempSrc: Oral SpO2: 99% Weight: 136.1 kg (300 lb) Height: 175.3 cm (5' 9 ) No results found. Past Medical History: Diagnosis Date Allergic Anxiety Bipolar 2 disorder (CMS/HCC) ([facility]) Eczema Current Outpatient Medications: ARIPiprazole (ABILIFY) 2 mg [...] on 03/19/2024), Disp: 30 tablet, Rfl: 0 No Known Allergies Social History Tobacco Use Smoking status: Never Smokeless tobacco: Not on file Substance and Sexual Activity Drug use: Never Sexual activity: Yes Partners: Male control/protection: Implant Alcohol Use: Not At Risk (07/25/2019) Received from [employer] [facility] Frequency of Alcohol Consumption: Never Average Number of Drinks: Not on file Frequency of Binge Drinking: Not on file No past surgical history on file. Procedures Assessment/Plan No results found for this or any previous visit (from the past 4 hours). Diagnoses and all orders for this visit: Exposure to syphilis (Primary) - Hepatitis panel, acute Blood; Future - RPR Blood; Future - HIV 1/2 Antibody plus p24 Antigen Blood; Future - N. gonorrhoeae/C. trachomatis Amplification Vaginal; Future - Vaginitis panel Vaginal; Future Plan: Patient self swabbed for vaginal specimens. We will return tomorrow for blood work. Discussedwith patient we can either have her return to the clinic for Bicillin injection versus give her oral doxycycline b.i.d. times 14 days. Patient verbalizes understanding. Discussed with patient if her RPR is negative, recommend repeating the test at 6 and 12 months. Disposition Treatment plan including expectations, follow up, and return precautions discussed with patient/parent, verbalizes understanding. Medication dosage, use, and potential adverse reactions discussed with patient/parent. Advised to follow up with PCP if symptoms do not resolve as expected or sooner if condition worsens. Signs/symptoms warranting ER evaluation reviewed. Patient and/or guardian was given an opportunity to ask questions, questions answered. Danielle Patel NP RMAN/WOMAN documented in this encounter Miscellaneous Notes * Addendum Note - Bruna Thornotn - 05/03/2024 7:15 PM CSTAddended by: BRUNA THORNTON on: 05/04/2024 08:25 AM Modules accepted: Orders RMAN/WOMAN documented in this encounter Plan of Treatment Not on file documented as of this encounter Results * Hepatitis panel, acute Blood (05/04/2024 8:26 AM MOTORMAN/WOMAN) Hep A IgM Nonreactive Nonreactive Comment: Interpretive Data: If Hep A IgM Ab is reported as Equivocal, a new sample should be drawn in two weeks for testing. Current interpretive data was last revised on 19. Hep B core IgM Nonreactive Nonreactive [facility] Comment: Interpretive Data If HepB Core IgM Ab is reported as Equivocal, a new sample should be drawn in two weeks for testing. Current interpretive data was last revised on 19. Hep C Ab Nonreactive Nonreactive [facility] Comment: Interpretive Data Nonreactive: Antibodies [...] last revised on 2019. HepBsAg Nonreactive Nonreactive [facility] Blood 05/04/2024 8:26 AM MOTORMAN/WOMAN 05/04/2024 7:24 PM MOTORMAN/WOMAN Danielle Patel NP LAB MICROBIOLOGY - GENERAL ORDERABLES Final Result Performing Organization Address [facility] Co de Phone Number MAGGY [address] [address] [employer] [place] [address] * RPR Blood (05/04/2024 8:26 AM MOTORMAN/WOMAN) Pathologist [facility] RPR Nonreactive Nonreactive Blood 05/04/2024 8:26 AM MOTORMAN/WOMAN 05/04/2024 7:24 PM MOTORMAN/WOMAN Danielle Patel NP LAB MICROBIOLOGY - GENERAL ORDERABLES Final Result Performing Organization Address [facility] Co de Phone Number MAGGY [address] [address] [facility] [place] [address] * HIV 1/2 Antibody plus p24 Antigen Blood (05/04/2024 8:26 AM MOTORMAN/WOMAN) Pathologist [facility] HIV 1/2 ab + p24 ag Nonreactive Nonreactive Comment: Nonreactive for HIV-1 antigen and HIV-1/HIV-2 antibodies. No laboratory evidence of HIV infection. If acute HIV infection is suspected, consider testing for HIV-1 RNA. Blood 05/04/2024 8:26 AM MOTORMAN/WOMAN 05/04/2024 7:24 PM MOTORMAN/WOMAN Danielle Patel NP LAB MICROBIOLOGY - GENERAL ORDERABLES Final Result Performing Organization Address [facility] Co de Phone Number MAGGY WINNIE [address] [place] [address] * Vaginitis panel Vaginal (05/03/2024 7:27 PM MOTORMAN/WOMAN) Saumya DNA probe Not Detected Not Detected Comment:Testing performed by : [facility], [address] [place] [address]., [id number] Gardnerella DNA probe Not Detected Not Detected MAG[facility] Comment:Testing performed by : [facility], [address] [place] [address]., [id number] Trichomonas DNA probe Not Detected Not Detected [facility] Comment: Interpretive Data Testing performed by [facility] via Affirm VPIII Microbial Identification Test, [...] last revised on 2020. Testing performed by: [facility], [address] [place] [address]., [id number] Vaginal 05/03/2024 7:27 PM MOTORMAN/WOMAN 05/04/2024 1:04 PM MOTORMAN/WOMAN Danielle Patel NP LAB MICROBIOLOGY - GENERAL ORDERABLES Final Result Performing Organization Address [facility] Co de Phone Number MAGGY ZHOU [address] [place] [address] * N. gonorrhoeae/C. trachomatis Amplification Vaginal (05/03/2024 7:27 PM MOTORMAN/WOMAN) C. trachomatis Not Detected [facility] Comment:Testing performed by : [facility], [address] [place] [address]., [id number] N. gonorrhoeae Not Detected [facility] ZHOU Comment: Interpretive Data This assay detects Chlamydia trachomatis and Neisseria gonorrhoeae by nucleic acid amplification testing (NAAT). This assay has been cleared by the [place] Food and Drug administration. The performance characteristics of this test have been verified by the [facility] Molecular Infectious Disease laboratory. The performance characteristics of this test have not been evaluated in individuals less than 14 years of age. Current Interpretive Data was last revised on 2023. Testing performed by: [facility], [address] [place] [address]., [id number] Vaginal (None) 05/03/2024 7: 27 PM MOTORMAN/WOMAN 05/04/2024 10:43 AM MOTORMAN/WOMAN Danielle Patel NP LAB MICROBIOLOGY - GENERAL ORDERABLES Final Result [facility] [place]HOU [address] [address] [place] [address] [facility] documented in this encounter Visit Diagnoses Diagnosis Exposure to syphilis- Primary Contact with or exposure to venereal diseases documented in this encounter Care Teams Patrol Community Service Officer Relationship Specialty Start Date End Date Bhupendra Pacheco MD PCP - General Family Medicine 03/25/22 documented as of this encounter
--- OUTSIDE RECORDS SUMMARY | 2024-06-13 10:49 | XMS_ITS | Encounter Summary ---
Author Organization [facility] Healthcare Address [address] [place] [address] Care Team Providers Care Cullet Crusher And Washer Name Role Phone Bhupendra Pacheco MD Primary Care Provider [phone] Encounter Details Date Type Department Care Team (Late st Contact Info) Description 03/25/2022 3:[address] PM [address] [address] Preventative health care; Bipolar II disorder (CMS/HCC) (HCC); Class 3 severe obesity due to excess calories without serious comorbidity with body mass index (BMI) of 40.0 to 44.9 in adult (HCC) Social History Tobacco Use Types Packs/Day Years [...] Procedure Name Priority Date/Time Associated Diagnosis Comments EGFR Routine 03/25/2022 3:19 PM CDT Bipolar II disorder (CMS/HCC) (HCC) DIFFERENTIAL AUTO Routine 03/25/2022 3:1 9 PM CDT Preventative health care THYROID FUNCTION CASCADE Routine 03/25/2022 3:19 PM CDT Bipolar II disorder (CMS/HCC) (HCC) Class 3 severe obesity due to excess calories without serious comorbidity with body mass index (BMI) of 40.0 to 44.9 in adult ([facility]) CBC WITH AUTO DIFFERENTIAL Routine 03/25/2022 3:19 PM CDT Preventative health care HEMOGLOBIN A1C Routine 03/25/2022 3:19 PM CDT Class 3 severe obesity due to excess calories without serious comorbidity with body mass index (BMI) of 40.0 to 44.9 in adult ([facility]) LIPID PANEL Routine 03/25/2022 3:19 PM CDT Class 3 severe obesity due to excess calories without serious comorbidity with body mass index (BMI) of 40.0 to 44.9 in adult ([facility]) COMPREHENSIVE METABOLIC PANEL Routine 03/25/2022 3:19 PM CDT Bipolar II disorder ([facility]/HCC) ([facility]) documented in this encounter Results * eGFR (03/25/2022 3:19 PM CDT) eGFR 118 mL/min/1. 73 m2 [facility] ([place]) Comment: Interpretive Data Reference Interval Normal ?>/= 90 mL/min/1.73m2 Mildly decreased* ? 60 - 89 mL/min/1.73m2 Mildly to moderately decreased ?45 - 59 mL/min/1.73m2 Moderately to severely decreased ??30 - 44 mL/min/1.73m2 Severely decreased ?15 - 29 mL/min/1.73m2 Kidney Failure ?< 15 ??mL/min/1.73m2 *Relative to young adult level Estimated glomerular filtration rate is determined by the 2020 CKD-EPI equation recommended by the National Kidney Foundation (A Unifying Approach to GFR Estimation: Recommendations of the NKF-ASK Task Force on Reassessing the Inclusion of Race in Diagnosing Kidney Disease, JASN 2020). The CKD-EPI equation should not be used for patients with unstable renal function and has not been validated in children and those over 70. Current interpretive data was last reviewed 2021. Blood 03/25/2022 3:19 PM CDT 03/25/2022 5:15 PM CDT us Bhupendra Pacheco MD LAB BLOOD ORDERABLES Final Resul t [facility] ([place]) 1 [facility] Department [place] [address] * Differential, auto (03/25/2022 3:19 PM CDT) Neutrophil abs 5.7 1.7 - 6.5 K/cumm [facility] ([place]) Imm gran abs 0.0 0.0 - 0.1 K/cumm [facility] ([place]) Lymphocyte abs 2.1 0.8 - 3.3 K/cumm [facility] ([place]) Monocyte abs 0.5 0.2 - 0.8 K/cumm [facility] ([place]) Eosinophil abs 0.1 0.0 - 0.5 K/cumm [facility] ([place]) Basophil abs 0.0 0.0 - 0.1 K/cumm [facility] ([place]) Neutrophil pct 67.0 % [facility] ([place]) Comment: Interpretive Data Percent cell count reference ranges are not reported, since discordance with absolute values may lead to misinterpretation of CBC data. Current Interpretive Data was last revised on 2017. Imm gran pct 0.4 % [facility] ([place]) Comment: Interpretive Data Percent cell count reference ranges are not reported, since discordance with absolute values may lead to misinterpretation of CBC data. Current Interpretive Data was last revised on 2017. Lymphocyte pct 24.7 % [facility] ([place]) Comment: Interpretive Data Percent cell count reference ranges are not reported, since discordance with absolute values may lead to misinterpretation of CBC data. Current Interpretive Data was last revised on 2017. Monocyte pct 6.2 % [facility] ([place]) Comment: Interpretive Data Percent cell count reference ranges are not reported, since discordance with absolute values may lead to misinterpretation of CBC data. Current Interpretive Data was last revised on 2017. Eosinophil pct 1.3 % [facility] ([place]) Comment: Interpretive Data Percent cell count reference ranges are not reported, since discordance with absolute values may lead to misinterpretation of CBC data. Current Interpretive Data was last revised on 2017. Basophil pct 0.4 % [facility] ([place]) Comment: Interpretive Data Percent cell count reference ranges are not reported, since discordance with absolute values may lead to misinterpretation of CBC data. Current Interpretive Data was last revised on 2017. Blood 03/25/2022 3:19 PM CDT 03/25/2022 5:15 PM CDT Bhupendra Pacheco MD LAB BLOOD ORDERABLES Final Resul t Performing Organization Address [facility] de Phone Number MAG[facility] ([place]) [address] [facility] [employer] [address] * TSH reflex to free T4 (03/25/2022 3:19 PM CDT) TSH 1.20 0.30 - 4.20 mcIUnit/mL [facility] ([place]) Blood 03/25/2022 3:19 PM CDT 03/25/2022 5:15 PM CDT Bhupendra Pacheco MD LAB BLOOD ORDERABLES Final Resul t Performing Organization Address [facility] de Phone Number [facility] ([place]) 1 [facility] [place] [address] * Lipid panel (03/25/2022 3:19 PM CDT) Cholesterol 146 30 - 199 mg/dL [facility] ([place]) Comment: Interpretive Data Ages < or = 19 years ??Acceptable: ? <170 mg/dL ??Borderline high: ??170-199 mg/dL ??High: ? >or= 200 mg/dL Ages > or = 20 years ??Desirable: ?<200 mg/dL ??Borderline high: ??200-239 mg/dL ??High: ? >or= 240 mg/dL Literature References: 1. Expert Panel on Integrated Guidelines for Cardiovascular Health and Risk Reduction in Children and Adolescents. Pediatrics 2011;128:S213 2. NCEP Expert Panel. Circulation 2004;110:227 Current Interpretive Data was last revised on 2018. Triglycerides 71 <=149 mg/dL [facility] ([place]) Comment: Interpretive Data Ages < or = 9 years ??Acceptable: ? <75 mg/dL ??Borderline high: ??75-99 mg/dL ??High: ? >or= 100 mg/dL Ages 10 to 20 years ??Acceptable: ? <90 mg/dL ??Borderline high: ??90-129 mg/dL ??High: ? >or= 130 mg/dL Ages > or = 20 years ??Desirable: ?<150 mg/dL ??Borderline high: ??150-199 mg/dL ??High: ? 200-499 mg/dL ?Very high: ?? >or= 499 mg/dL Literature References: 1. Expert Panel on Integrated Guidelines for Cardiovascular Health and Risk Reduction in Children and Adolescents. Pediatrics 2011;128:S213 2. NCEP Expert Panel. Circulation 2004;110:227 Current Interpretive Data was last revised on 2018. HDL 44 >=40 mg/dL [facility]) Comment: Interpretive Data Ages < or = 19 years ??Acceptable: ? >45 mg/dL ??Borderline low: ?? 40-45 mg/dL ??Low: ? <40 mg/dL Ages > or = 20 years ??Desirable: ?>or= 60 mg/dL ??Low: ? <40 mg/dL Literature References: 1. Expert Panel on Integrated Guidelines for Cardiovascular Health and Risk Reduction in Children and Adolescents. Pediatrics 2011;128:S213 2. NCEP Expert Panel. Circulation 2004;110:227 Current Interpretive Data was last revised on 2018. LDL, calculated 88 <=129 mg/dL [facility] ([place]) Comment: Interpretive Data Ages < or = 19 years ??Acceptable: ? <110 mg/dL ??Borderline high: ??110-129 mg/dL ??High: ?>or= 130 mg/dL Ages > or = 20 years ??Optimal: ? <100 mg/dL ??Near optimal: ?100-129 mg/dL ??Borderline high: ?? 130-159 mg/dL ??High: ?>160 mg/dL Literature References: 1. Expert Panel on Integrated Guidelines for Cardiovascular Health and Risk Reduction in Children and Adolescents. Pediatrics 2011;128:S213 2. NCEP Expert Panel. Circulation 2004;110:227 Current Interpretive Data was last revised on 2018. Non-HDL Cholesterol 102 mg/dL [facility] ([place]) Comment: Interpretive Data Ages < or = 19 years ??Acceptable: ?<120 mg/dL ??Borderline high: ??120-144 mg/dL ??High: ?>145 mg/dL Ages > or = 20 years ??When triglycerides are >200 mg/dL, Non-HDL cholesterol is a secondary target of ? therapy with treatment goals that are 30 mg/dL greater than the LDL cholesterol target. ? Literature References: 1. Expert Panel on Integrated Guidelines for Cardiovascular Health and Risk Reduction in Children and Adolescents. Pediatrics 2011;128:S213 2. NCEP Expert Panel. Circulation 2004;110:227 Current Interpretive Data was last revised on 2018. Chol/HDL ratio 3 [facility] ([place]) Blood 03/25/2022 3:19 PM CDT 03/25/2022 5:15 PM CDT Bhupendra Pacheco MD LAB BLOOD ORDERABLES Final Resul t Performing Organization Address [facility] Co de Phone Number [facility]) 1 [facility] [place] [address] * Hemoglobin A1c (03/25/2022 3:19 PM CDT) Hgb A1C 5.0 4.0 - 5.6 % [facility] ([place]) Estimated Average Glucose 97 mg/dL [facility] ([place]) Comment: The ADA recommends reporting an estimated Average Glucose (eAG) with all Hemoglobin A1c results using the equation derived from a study of 507 normal and diabetic adults. ??Minority populations were underrepresented and children were not included. ?? (Diabetes Care 31:5581-0731, 2008). ??The eAG is not equivalent to a fasting glucose. Blood 03/25/2022 3:19 PM CDT 03/25/2022 5:15 PM CDT Bhupendra Pacheco MD LAB BLOOD ORDERABLES Final Resul t Performing Organization Address [facility] Co de Phone Number [facility] ([place]) 1 [facility] [place] [address] * Comprehensive metabolic panel (03/25/2022 3:19 PM CDT) Sodium 140 135 - 145 mmol/L [facility] ([place]) Potassium, pl 3.6 3.3 - 4.9 mmol/L [facility] ([place]) Chloride 103 97 - 110 mmol/L [facility] ([place]) CO2 28 22 - 32 mmol/L [facility] ([place]) Anion gap 8 2 - 15 mmol/L [facility] ([place]) BUN 13 8 - 25 mg/dL [facility] ([place]) Creatinine 0.69 0.60 - 1.10 mg/dL [facility] ([place]) Glucose 89 70 - 199 mg/dL [facility] ([place]) Comment: Interpretive Data Fasting glucose >/= 126 mg/dl is diagnostic for diabetes. ?? Fasting is defined as no caloric intake for at least 8 hours. Fasting glucose between 100 mg/dl to 125 mg/dl is diagnostic of prediabetes. In a patient with classic symptoms of hyperglycemia or hyperglycemic crisis, a random glucose >/= 200 mg/dl is diagnostic for diabetes. In the absence of unequivocal hyperglycemia, results should be confirmed by repeat testing. The classification and Diagnosis of Diabetes Diabetes Care 2017;40 (Suppl. 1):S11. Current interpretive data was last revised 2017. Calcium 9.0 8.5 - 10.3 mg/dL [facility] ([place]) Bilirubin, total 0.4 0.1 - 1.2 mg/dL [facility] ([place]) Protein, pl 7.0 6.5 - 8.5 g/dL [facility] ([place]) Albumin 4.4 3.5 - 5.0 g/dL [facility] ([place]) Alk phos 76 40 - 130 Units/L [facility] ([place]) ALT 13 7 - 45 Units/L [facility] ([place]) AST 13 10 - 45 Units/L [facility] ([place]) Blood 03/25/2022 3:19 PM CDT 03/25/2022 5:15 PM CDT us Bhupendra Pacheco MD LAB BLOOD ORDERABLES Final Resul t [facility] ([place]) 1 [facility] Department [place] [address] * CBC with auto differential (03/25/2022 3:19 PM CDT) WBC 8.5 3.8 - 9.9 K/cumm [facility] ([place]) Hgb 13.8 11.9 - 15.5 g/dL [facility] ([place]) Hct 41.2 35.6 - 45.5 % [facility] ([place]) Plt 278 150 - 400 K/cumm [facility] ([place]) MPV 9.8 9.1 - 12.3 fL [facility] ([place]) RBC 4.91 3.90 - 5.20 M/cumm [facility] ([place]) MCV 83.9 81.3 - 96.4 fL [facility] ([place]) MCH 28.1 27.1 - 33.3 pg [facility] ([place]) MCHC 33.5 32.3 - 35.7 g/dL [facility] ([place]) RDW CV 12.5 11.1 - 14.9 % [facility] ([place]) RDW SD 38.4 35.7 - 48.1 fL [facility] ([place]) NRBC abs 0.00 0.00 - 0.01 K/cumm [facility] ([place]) Blood 03/25/2022 3:19 PM CDT 03/25/2022 5:15 PM CDT us Bhupendra Pacheco MD LAB BLOOD ORDERABLES Final Resul t [facility] ([place]) 1 [facility] Department [place] [address] documented in this encounter Visit Diagnoses Diagnosis Preventative health care Routine general medical examination at a health care facility Bipolar II disorder (CMS/HCC) (HCC) Other bipolar disorders Class 3 severe obesity due to excess calories without serious comorbidity with body mass index (BMI) of 40.0 to 44.9 in adult (HCC) documented in this encounter Care Teams Cullet Crusher And Washer Relationship Specialty Start Date End Date Bhupendra Pacheco MD PCP - General Family Medicine 03/25/22 documented as of this encounter
--- OUTSIDE RECORDS SUMMARY | 2024-06-13 10:49 | XMS_ITS | Encounter Summary ---
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 syphilis Discharge Disposition: Discharge to [...] tablet (2 mg total) by mouth nightly 3 buPROPion XL (WELLBUTRIN XL) 150 mg 24 hr tablet Take 1 tablet (150 mg total) by mouth daily 4 etonogestreL (Nexplanon) 68 mg implant by subdermal route 3 hydrOXYzine (ATARAX) 25 mg tablet Take 1 tablet (25 mg total) by mouth every 8 (eight) hours as needed for anxiety lamoTRIgine (LaMICtal) 100 mg tablet Take 1 tablet (100 mg total) by mouth 2 (two) times a day 60 tablet 2 3 meloxicam (MOBIC) 15 mg tabletIndications:Left foot pain,Capsulitis of metatarsophalangeal (MTP) joint of left foot TAKE 1 TABLET BY MOUTH EVERY DAY WITH FOOD 30 tablet 4 omeprazole (PriLOSEC) 40 mg capsule Take 1 capsule (40 mg total) by mouth daily traZODone (DESYREL) 100 mg tablet Take 1 tablet (100 mg total) by mouth nightly documented as of this encounter Discharge Disposition Disposition Code Departure Means Destination Discharge to home or self care documented in this encounter Miscellaneous Notes * Result Encounter Note - Stephany Sun MA - 05/04/2024 11:59 PM JUSTOWRITER OPERATOR Patient reviewed their test results on My Chart OWRITER OPERATOR documented in this encounter Plan of Treatment Not on file documented as of this encounter Procedures Procedure Name Priority Date/Time Associated Diagnosis Comments HIV 1/2 ANTIBODY PLUS P24 ANTIGEN Routine 05/04/2024 8:26 AM JUSTOWRITER OPERATOR 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 No laboratory evidence of HIV infection. If acute HIV infection is suspected, consider testing for HIV-1 RNA. Blood 05/04/2024 8:26 AM JUSTOWRITER OPERATOR 05/04/2024 7:24 PM JUSTOWRITER OPERATOR us Danielle Patel NP LAB MICROBIOLOGY - GENERAL ORDERABLES Final Result [facility] [address] [place] [address] * RPR Blood (05/04/2024 8:26 AM JUSTOWRITER OPERATOR) RPR Nonreactive Nonreactive Blood 05/04/2024 8:26 AM JUSTOWRITER OPERATOR 05/04/2024 7:24 PM JUSTOWRITER OPERATOR Danielle Patel NP LAB MICROBIOLOGY - GENERAL ORDERABLES Final Result Performing Organization Address [facility] de Phone Number [facility] [phone] [address] [facility] [place] [address] * Hepatitis panel, acute Blood (05/04/2024 8:26 AM JUSTOWRITER OPERATOR) Pathologist [facility] Hep A IgM Nonreactive Nonreactive Comment: Interpretive Data: If Hep A IgM Ab is reported as Equivocal, a new sample should be drawn in two weeks for testing. Current interpretive data was last revised on 19. Hep B core IgM Nonreactive Nonreactive [facility] Comment: Interpretive Data If HepB Core IgM Ab is reported as Equivocal, a new sample should be drawn in two weeks for testing. Current interpretive data was last revised on 19. Hep C Ab Nonreactive Nonreactive [facility] Comment: Interpretive Data Nonreactive: Antibodies to HCV [...] last revised on 2019. 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
--- OUTSIDE RECORDS SUMMARY | 2024-06-13 10:49 | XMS_ITS | Encounter Summary ---
Author Organization [facility] Healthcare Address [address] [place] [address] Care Team Providers Care Accounting Manager Name Role Phone Bhupendra Pacheco MD Primary Care Provider [phone] Reason for Referral * Diagnostic Imaging (Routine) - Closed Specialty Diagnoses / Procedures Referred By Contac t Referred To Contact Diagnoses Left foot pain Procedures XR Foot Left 3 or More Views Gloria Dupont MD Phone: tel: fax: [facility] Medical Group Referral ID Status Reason Start Date Expiration Date Visits Re quested Visits Authorized [id number] Closed 12/30/2023 01/28/2025 1 1 Reason for Visit * Reason Comments Pain Patient hurt her lef t foot on [place] December 14. Patient been wearing the boot since December 15. Patient stated that hurts to walk out of the boot. Encounter Details Date Type Department Care Team (Latest Contact Info) Description 12/30/2023 12:00 PM CDT Office Visit [facility] Medical Group Sports Medicine and Primary Care at [address] [place] [address] Gloria Dupont MD [address] [place] [address] [address] [place] [address] Left foot pain (Primary Dx); Capsulitis of metatarsophalangeal (MTP) joint of left foot Social History Tobacco Use Types Packs/Day Years [...] Sign Reading Time Taken Comments Blood Pressure 127/70 12/30/2023 12:08 PM CDT Pulse 72 12/30/2023 12:08 PM CDT Temperature - - Respiratory Rate 18 12/30/2023 12:08 PM CDT Oxygen Saturation - - Inhaled Oxygen Concentration - - Weight 136.1 kg (300 lb) 12/30/2023 12:08 PM CDT Height 174 cm (5' 8.5 ) 12/30/2023 12:08 PM CDT Body Mass Index 44.95 12/30/2023 12:08 PM CDT documented in this encounter Patient Instructions * Patient Instructions* Gloria Dupont MD - 12/30/2023 12:00 PM CDT I think you have plantar plate irritation to the 2nd MTP. Either capsulitis vs traumatic tear. Treatment is relative rest, avoid going up on your toes. Can try a combination of metatarsal pad with cut out for 2nd MTP (this could be tried as a sesamoid pad with the cutout moved to include 2nd MTP. Acarbon fiber insole would also help If not improving in 4-6 weeks, please let me know documented in this encounter Ordered Prescriptions Prescription Sig Dispense Quantity Refills Last Filled Start Date End Date meloxicam (MOBIC) 15 mg tabletIndications:Left foot pain,Capsulitis of metatarsophalangeal (MTP) joint of left foot Take 1 tablet (15 mg total) by mouth daily Take with food 30 tablet 12/30/2023 01/27/20 24 documented in this encounter Progress Notes * Gloria Dupont MD - 12/30/2023 12:00 PM CDT Images from the original note were not included. [facility] Medical [facility] Primary Care [facility] at [facility] Consult PCP: Bhupendra Pacheco MD Chief Complaint Patient presents with Left Foot - Pain Patient hurt her left foot on [place] December 14. Patient been wearing the boot since December 15.Patient stated that hurts to walk out of the boot. NEW PATIENT VISIT Subjective CHIEF COMPLAINT She had concerns including Pain of the Left Foot (Patient hurt her left foot on [place] December 14. Patient been wearing the boot since December 15. Patient stated that hurts to walk out of the boot. ). HISTORY OF PRESENT ILLNESS Walking tour of [place]. Also jumped off a bar stool that day. Woke up 12/15 with pain in 2nd MTP. Trouble walking. In boot since 12/17. Minimal pain in the boot. Most her symptoms isolated to the 2nd MTP plantar surface with a little bit over towards the 3rd. No real symptoms to the 1st MTP No tingling or numbness. Symptoms can be relatively similar when she is walking barefoot or in his shoe boot. The boot does seem to help. She is using [id number] ibuprofen with some benefit Pain Assessment Pain Assessment: 0-10 Pain Score: 3 Pain Location: Foot Pain Orientation: Left Pain Descriptors: Aching, Sharp Pain Onset: Ongoing Date Pain First Started: 12/15/23 Aggravating Factors: Walking, Stairs Result of Injury: No Work-Related Injury: No Pain Interventions: Cold applied PAST MEDICAL HISTORY She has a past medical history of Allergic, Anxiety, Bipolar 2 disorder (CMS/HCC) ([facility]), and Eczema. PAST SURGICAL HISTORY She has no past surgical history on file. MEDICATIONS She has a current medication list which includes the following prescription(s): aripiprazole, bupropion xl, nexplanon, hydroxyzine, lamotrigine, omeprazole, trazodone, and meloxicam. ALLERGIES She has no known allergies. Objective PHYSICAL EXAM BP 127/70 (BP Location: Right arm, Patient Position: Sitting) Pulse 72 Resp 18 Ht 174 cm (5' 8.5 ) Wt 136.1 kg (300 lb) BMI 44.95 kg/m?? Ortho Exam Left foot - there may be very slight swelling to the plantar aspect of the the ball of foot near the 2nd and 3rd MTP. No real ecchymosis. No erythema or deformity. No open wounds. She has no real tenderness to the 1st metatarsal, MTP or phalanges. There is moderate tenderness to the 2nd MTP plantarsurface with very slight adjacent tenderness to the 3rd MTP plantar surface. Minimal dorsal tenderness to the 2nd MTP. No tenderness to the metatarsal shafts. No real pain with axial loading of the metatarsal shafts but there is pain with slight loading to the 2nd MTP. She is pain with maximal extension of the 2nd MTP. No pain to the 4th or 5th MTP or metatarsals. No tenderness to the tarsal bones or ankle. Ankle range of motion intact. Sensation intact. Strength intact to plantar flexion, dorsiflexion, inversion eversion without pain REVIEW OF X-RAYS/STUDIES/LABS . Three views of patient's left foot were obtained in office today. I do not appreciate any acute fracture or dislocation. The foot is relatively normal in appearance. I do not appreciate any stress reaction. No signs of osteonecrosis/avascular necrosis. No significant degenerative changes. My inter pretation of the x-rays was discussed at time of appointment but official read is still pending Assessment/Plan Kinga was seen today for pain. Diagnoses and all orders for this visit: Left foot pain - XR Foot Left 3 or More Views; Future - meloxicam (MOBIC) 15 mg tablet; Take 1 tablet (15 mg total) by mouth daily Take with food Capsulitis of metatarsophalangeal (MTP) joint of left foot - meloxicam (MOBIC) 15 mg tablet; Take 1 tablet (15 mg total) by mouth daily Take with food Patient is seen today for acute onset of left foot pain beginning about 2 weeks ago. Symptoms seem to isolate to the plantar aspect of the 2nd MTP with a little bit of symptoms over to the 3rd MTP. Less likely to be a Bellamy's neuroma. Based on history and examination I am concerned about a 2nd MTPshe plantar plate injury versus capsulitis. X-ray was negative. Low suspicion of stress fracture. No signs of acute fracture on my review of x-rays but official radiology read is still pending. Discussed treatment for this. A stiff-soled shoe with a carbon fiber insole with possible metatarsal pad without it cut out to further offload the 2nd MTP likely would be sufficient to help protect this area and lower heel. However for now I think it is very reasonable to keep her in the orthopedic boot for another couple weeks until symptoms settle down. As symptoms improve we can gradually transitionto a regular stiff-soled shoe with carbon fiber insole and a metatarsal pad as discussed. We will give her a short course of meloxicam. Discussed side effects and use. Do not combine with any other nonsteroidal anti- inflammatory. If symptoms do not improve over the next 4-6 weeks she will let us know. If struggling significantly we may need to consider an MRI to evaluate for stress fracture or more significant injury that may warrant surgical intervention. Questions answered. Patient agrees with plan Patient advised to call or return if symptoms do not improve as expected in the next 4-6 weeks, patient develops signs concerning for neurologic symptoms or any other concerning symptoms. An After Visit Summary was printed and given to the patient. Follow up in as needed if not improving Gloria Dupont MD MDM- moderate: New diagnosis uncertain prognosis, Independent interpretation of imaging test to be reported separately by Radiology, prescription drug management documented in this encounter Plan of Treatment Not on file documented as of this encounter Results * XR Foot Left [...] D: ??01/01/2024 9:32 AM T: Report ID: [id number] Reading Location: [id number] Procedure Note Ady Ashby MD - 01/01/2024 [...] by Ady Ashby M.D. T: Report ID: [id number] Reading Location: [id number] Gloria Dupont MD IMG XR PROCEDURES Rose l Result documented in this encounter Visit Diagnoses Diagnosis Left foot pain- Primary Pain in soft tissues of limb Capsulitis of metatarsophalangeal (MTP) joint of left foot Left foot pain Pain in soft tissues of limb documented in this encounter Historical Medications * This list may reflect changes made after this encounter. buPROPion XL (WELLBUTRIN XL) 150 mg 24 hr tablet Take 1 tablet (150 mg total) by mouth daily 11/23/2023 added in this encounter Care Teams Accounting Manager Relationship Specialty Start Date End Date Bhupendra Pacheco MD PCP - General Family Medicine 03/25/22 documented as of this encounter
--- OUTSIDE RECORDS SUMMARY | 2024-06-13 10:49 | XMS_ITS | Encounter Summary ---
Author Organization [facility] Healthcare Address [address] [place] [id number] Care Team Providers Care Rn Wound Care Name Role Phone Bhupendra Pacheco MD Primary Care Provider [phone] Reason for Visit * Reason Comments Sore Throat Chest congestion, pr oductive cough, headaches, body aches. Encounter Details Date Type Department Care Team (Late Contact Info) Description 05/20/2023 9:30 AM JUSTOWRITER OPERATOR Office Visit [facility] at [address] [phone] Jennifer Tesfaye NP [address] [place] [address] [address] [place] [address] COVID-19 (Primary Dx) Social History Tobacco Use Types [...] Sign Reading Time Taken Comments Blood Pressure 120/86 05/20/2023 9:46 AM JUSTOWRITER OPERATOR Pulse 89 05/20/2023 9:46 AM JUSTOWRITER OPERATOR Temperature 36.6 ??C (97.9 ??F) 05/20/2023 9:46 AM CS T Respiratory Rate 16 05/20/2023 9:46 AM JUSTOWRITER OPERATOR Oxygen Saturation 98% 05/20/2023 9:46 AM JUSTOWRITER OPERATOR Inhaled Oxygen Concentration - - Weight 136.1 kg (300 lb) 05/20/2023 9:46 AM JUSTOWRITER OPERATOR Height 174 cm (5' 8.5 ) 05/20/2023 9:46 AM JUSTOWRITER OPERATOR Body Mass Index 44.95 05/20/2023 9:46 AM JUSTOWRITER OPERATOR documented in this encounter Patient Instructions * Patient Instructions* Jennifer Tesfaye, [employer] - 05/20/2023 9:30 AM JUSTOWRITER OPERATOR The rapid COVID test performed today in clinic was positive. The following are recommendations for treating the symptoms related to COVID19. What is the difference between Influenza (Flu) and COVID-19? Influenza (Flu) and COVID-19 are both contagious respiratory illnesses, but they are caused by different viruses. COVID-19 is caused by infection with a new coronavirus (called SARS-CoV-2) and flu is caused by infection with influenza viruses. There are some johns differences between flu and COVID-19. COVID-19 seems to spread more easily than flu and causes more serious illnesses in some people. It can also take longer before people show symptoms and people can be contagious for longer. The best way to prevent infection is to avoid being exposed to the virus. Because some of the symptoms of flu and COVID-19 are similar, it may be hard to tell the difference between them based on symptoms alone, and testing may be needed to help confirm a diagnosis.While more is learned every day, there is still a lot that is unknown about COVID-19 and the virus that causes it. The [facility] Department will be reaching out to all patients who have a positive test for further discussion and monitoring. Continue to self isolate until at least 5 days have passed since symptom onset, your symptoms have improved, and you have been fever free without the use of fever reducing medications for at least 24 hours. The CDC recommends that after 5 days of isolation if you are fever free and symptoms have improved that you can come out of isolation but please continue to wear your mask. You may use acetaminophen and/or ibuprofen to control pain and fever. If you have chronic liver disease, have ever had a stomach ulcer or gastrointestinal bleeding talk with your healthcare provider before using these medicines. Aspirin should never be given to anyone under 18 years of age who is ill with a viral infection or fever. It may cause severe liver or brain damage. Your appetite may be poor, so a light diet is ok. Stay well hydrated by drinking 6 to 8 glasses of fluids per day (water, soft drinks, juices, tea, or soup). Extra fluids will help loosen secretions in the nose and lungs. Rmci-cch-xmzwskb cold medicines will not shorten the length of time you???re sick, but they may be helpful for relieving the following symptoms: headache, cough, sore throat, and nasal and sinus congestion. If you take prescription medicines, ask your healthcare provider or pharmacist which lxqq-rlz-dgfsarp medicines are safe to use. (Note: DO NOT use decongestants if you have high blood pressure.) Steps to help prevent the spread of COVID-19 if you are sick If you are sick with COVID-19 or think you might have COVID-19, follow the steps below to care for yourself and to help protect other people in your home and community. Stay home except to get medical care Most people with COVID-19 have mild illness and are able to recover at home without medical care. Do not leave your home, except to get medical care. Do not visit public areas. Take care of yourself. Get rest and stay hydrated. Take qnyj-dvq-jxfqkjl medicines to help you feelbetter. Stay in touch with your doctor. Call before you get medical care. Be sure to get care if you have trouble breathing, or have any other emergency warning signs, or if you think it is an emergency. Avoid using public transportation, ride-sharing, or taxis. Monitor your symptoms Symptoms of COVID-19 include fever, cough, shortness of breath or difficulty breathing, fatigue, muscle or body aches, headache, new loss of taste or smell, sore throat, congestion, runny nose, nausea, vomiting, or diarrhea. When to Seek Medical Attention If you develop emergency warning signs for COVID-19 get medical attention immediately. Emergency warning signs include*: Trouble breathing Persistent pain or pressure in the chest New confusion or inability to arouse Bluish lips or face *This list is not all inclusive. Please consult your medical provider for any other symptoms that are severe or concerning. Call 911 if you have a medical emergency: If you have a medical emergency and need to call 911, notify the network control operators supervisor that you have or think you might have, COVID-19. If possible, put on a facemask before medical help arrives. Separate yourself from other people in your home, this is known as home isolation As much as possible, you should stay away from other people and pets in your home. You should stay in a specific ???sick room?? if possible. Use a separate bathroom, if available. If you need to be around other people or animals in or outside of the home, wear a mask For more information on sharing close living quarters with someone who is sick visit https://www.cdc .gov/coronavirus/2019-ncov/nnpzp-fynu-ypimdl/xfibne-mk-ddxjv-quarters.html For more information on COVID-19 and pets visit https://www.cdc.gov/coronavirus/2019-ncov/faq.html Call ahead before visiting your doctor Many medical visits for routine care are being postponed or done by phone or telemedicine. If you have a medical appointment that cannot be postponed, call your doctor???s office, and tell them you have or may have COVID-19. This will help the office protect themselves and other patients. OWRITER OPERATOR documented in this encounter Progress Notes * Jennifer Tesfaye NP - 05/20/2023 9:30 AM CST Images from the original note were not included. Patient ID: Kinga Amaya is a 32 y.o. female followed by Bhupendra Pacheco MD Chief Complaint Patient presents with Sore Throat Chest congestion, productive cough, headaches, body aches. Patient presents to the clinic with reports of sore throat, headaches, cough, and body aches for 1 day. Denies fevers, chest pain, difficulty breathing, and rash. She has taken cold/flu medications for her symptoms. Review of Systems Constitutional: Negative for chills, fatigue and fever. HENT: Positive for sore throat. Negative for congestion, ear pain, postnasal drip, rhinorrhea and sinus pressure. Respiratory: Positive for cough. Negative for shortness of breath and wheezing. Cardiovascular: Negative for chest pain. Gastrointestinal: Negative for nausea. Musculoskeletal: Positive for myalgias. Neurological: Positive for headaches. Vitals: 05/20/23 0946 BP: 120/86 Pulse: 89 Resp: 16 Temp: 36.6 ??C (97.9 ??F) SpO2: 98% Weight: 136.1 kg (300 lb) Height: 174 cm (5' 8.5 ) Recent Results (from the past 24 hour(s)) POC Influenza A/B, COVID-19 antigen Collection Time: 05/20/23 9:49 AM Result Value Ref Range Influenza A Ag, POC Negative Negative Influenza B Ag, POC Negative Negative COVID-19 Ag POC Positive (A) Presumptive Negative, Invalid POCT rapid strep A Collection Time: 05/20/23 9:52 AM Result Value Ref Range Rapid Strep A, POC Negative Negative Physical Exam Vitals reviewed. Constitutional: General: She is not in acute distress. Appearance: Normal appearance. She is well-developed. She is ill-appearing. HENT: Head: Normocephalic. Right Ear: Tympanic membrane, ear canal and external ear normal. No middle ear effusion. Tympanic membrane is not injected, erythematous or bulging. Left Ear: Tympanic membrane, ear canal and external ear normal. No middle ear effusion. Tympanic membrane is not injected, erythematous or bulging. Nose: Congestion present. No rhinorrhea. Right Sinus: No maxillary sinus tenderness or frontal sinus tenderness. Left Sinus: No maxillary sinus tenderness or frontal sinus tenderness. Mouth/Throat: Lips: [place]. Mouth: Mucous membranes are moist. Pharynx: Uvula midline. No pharyngeal swelling, oropharyngeal exudate or posterior oropharyngeal erythema. Cardiovascular: Rate and Rhythm: Normal rate and regular rhythm. Pulmonary: Effort: Pulmonary effort is normal. No respiratory distress. Breath sounds: Normal breath sounds. No decreased breath sounds, wheezing or rhonchi. Lymphadenopathy: Cervical: No cervical adenopathy. Skin: General: Skin is warm and dry. Neurological: Mental Status: She is alert and oriented to person, place, and time. Psychiatric: Behavior: Behavior is cooperative. Diagnoses and all orders for this visit: COVID-19 (Primary) - POC Influenza A/B, COVID-19 antigen - POCT rapid strep A Orders Placed This Encounter Procedures POC Influenza A/B, COVID-19 antigen Order Specific Question: Is the Patient experiencing symptoms consistent with COVID? Answer: Yes Order Specific Question: Date of Symptom Onset Answer: 05/18/2023 Order Specific Question: Is the patient hospitalized? Answer: No Order Specific Question: Is the patient admitted to an ICU? Answer: No Order Specific Question: Is this the first COVID-19 test for this patient? 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 Answer: No Order Specific Question: ? Answer: No POCT rapid strep A Assessment/Plan -covid positive -vitals stable, pt non toxic appearing, no respiratory distress, lungs CTA on exam, lungs 98% on RA. --Will treat supportively and with OTC meds (Flonase, Antihistamine, Sudafed,Tylenol, Motrin) -isolation precautions and ER precautions discussed Disposition Treatment plan including expectations, follow up, and return precautions discussed with patient/parent, verbalizes understanding. Medication dosage, use, and potential adverse reactions discussed with patient/parent. Advised to follow up with PCP if symptoms do not resolve as expected or sooner if condition worsens. Discussed Signs/symptoms warranting ER evaluation including worsening fever, increased shortness ofbreath, chest pain, severe N/V/D, or any other worrisome symptoms Patient and/or guardian was given an opportunity to ask questions, questions answered. Patient Education The rapid COVID test performed today in clinic was positive. The following are recommendations for treating the symptoms related to COVID19. What is the difference between Influenza (Flu) and COVID-19? Influenza (Flu) and COVID-19 are both contagious respiratory illnesses, but they are caused by different viruses. COVID-19 is caused by infection with a new coronavirus (called SARS-CoV-2) and flu is caused by infection with influenza viruses. There are some johns differences between flu and COVID-19. COVID-19 seems to spread more easily than flu and causes more serious illnesses in some people. It can also take longer before people show symptoms and people can be contagious for longer. The best way to prevent infection is to avoid being exposed to the virus. Because some of the symptoms of flu and COVID-19 are similar, it may be hard to tell the difference between them based on symptoms alone, and testing may be needed to help confirm a diagnosis.While more is learned every day, there is still a lot that is unknown about COVID-19 and the virus that causes it. The [facility] Department will be reaching out to all patients who have a positive test for further discussion and monitoring. Continue to self isolate until at least 5 days have passed since symptom onset, your symptoms have improved, and you have been fever free without the use of fever reducing medications for at least 24 hours. The CDC recommends that after 5 days of isolation if you are fever free and symptoms have improved that you can come out of isolation but please continue to wear your mask. You may use acetaminophen and/or ibuprofen to control pain and fever. If you have chronic liver disease, have ever had a stomach ulcer or gastrointestinal bleeding talk with your healthcare provider before using these medicines. Aspirin should never be given to anyone under 18 years of age who is ill with a viral infection or fever. It may cause severe liver or brain damage. Your appetite may be poor, so a light diet is ok. Stay well hydrated by drinking 6 to 8 glasses of fluids per day (water, soft drinks, juices, tea, or soup). Extra fluids will help loosen secretions in the nose and lungs. Eqra-uxk-izbwrgm cold medicines will not shorten the length of time you???re sick, but they may be helpful for relieving the following symptoms: headache, cough, sore throat, and nasal and sinus congestion. If you take prescription medicines, ask your healthcare provider or pharmacist which fwjm-lca-lonejhc medicines are safe to use. (Note: DO NOT use decongestants if you have high blood pressure.) Steps to help prevent the spread of COVID-19 if you are sick If you are sick with COVID-19 or think you might have COVID-19, follow the steps below to care for yourself and to help protect other people in your home and community. Stay home except to get medical care Most people with COVID-19 have mild illness and are able to recover at home without medical care. Do not leave your home, except to get medical care. Do not visit public areas. Take care of yourself. Get rest and stay hydrated. Take tfbb-bea-vmbqeje medicines to help you feelbetter. Stay in touch with your doctor. Call before you get medical care. Be sure to get care if you have trouble breathing, or have any other emergency warning signs, or if you think it is an emergency. Avoid using public transportation, ride-sharing, or taxis. Monitor your symptoms Symptoms of COVID-19 include fever, cough, shortness of breath or difficulty breathing, fatigue, muscle or body aches, headache, new loss of taste or smell, sore throat, congestion, runny nose, nausea, vomiting, or diarrhea. When to Seek Medical Attention If you develop emergency warning signs for COVID-19 get medical attention immediately. Emergency warning signs include*: Trouble breathing Persistent pain or pressure in the chest New confusion or inability to arouse Bluish lips or face *This list is not all inclusive. Please consult your medical provider for any other symptoms that are severe or concerning. Call 911 if you have a medical emergency: If you have a medical emergency and need to call 911, notify the network control operators supervisor that you have or think you might have, COVID-19. If possible, put on a facemask before medical help arrives. Separate yourself from other people in your home, this is known as home isolation As much as possible, you should stay away from other people and pets in your home. You should stay in a specific ???sick room?? if possible. Use a separate bathroom, if available. If you need to be around other people or animals in or outside of the home, wear a mask For more information on sharing close living quarters with someone who is sick visit https://www.cdc .gov/coronavirus/2019-ncov/dkegq-fsns-eimabl/sivgoq-qd-qdvco-quarters.html For more information on COVID-19 and pets visit https://www.cdc.gov/coronavirus/2019-ncov/faq.html Call ahead before visiting your doctor Many medical visits for routine care are being postponed or done by phone or telemedicine. If you have a medical appointment that cannot be postponed, call your doctor???s office, and tell them you have or may have COVID-19. This will help the office protect themselves and other patients. Jennifer Tesfaye NP OWRITER OPERATOR documented in this encounter Plan of Treatment Not on file documented as of this encounter Procedures Procedure Name Priority Date/Time Associated Diagnosis Comments POCT RAPID STREP Routine 05/20/2023 9:52 AM JUSTOWRITER OPERATOR COVID-19 POC INFLUENZA A/B, COVID-19 ANTIGEN Routine 05/20/2023 9:49 AM JUSTOWRITER OPERATOR COVID-19 documented in this encounter Results * POCT rapid strep A (05/20/2023 9:52 AM JUSTOWRITER OPERATOR) Rapid Strep A, POC Negative Negative Swab 05/20/2023 9:52 AM JUSTOWRITER OPERATOR us Jennifer Tesfaye NP POINT OF CARE TEST ORDERABLES Final Result * (ABNORMAL) POC Influenza A/B, COVID-19 antigen (05/20/2023 9:49 AM JUSTOWRITER OPERATOR) Influenza A Ag, POC Negative Negative [facility] Influenza B Ag, POC Negative Negative [facility] COVID-19 Ag POC Positive(A) Presumptive Negative, Invalid [facility] Nasal 05/20/2023 9:49 AM JUSTOWRITER OPERATOR us Jennifer Tesfaye NP POINT OF CARE TEST ORDERABLES Final Result Performing Organization Address City/State/[facility] Co de Phone Number [facility] [address] [place] [address] documented in this encounter Visit Diagnoses Diagnosis COVID-19- Primary documented in this encounter Care Teams Rn Wound Care Relationship Specialty Start Date End Date Bhupendra Pacheco MD PCP - General Family Medicine 03/25/22 documented as of this encounter
--- OUTSIDE RECORDS SUMMARY | 2024-06-13 10:49 | XMS_ITS | Encounter Summary ---
Author Organization [facility] Address [address] [facility] [address] [place] [id number] Care Team Providers Care Fixed Wing Aircraft Crew Chief Name Role Phone Bhupendra Pacheco MD Primary Care Provider [phone] Reason for Visit * Reason Comments Vaginal Pain X 1 week, discomfort and spotting, X 2 weeks, Encounter Details Date Type Department Care Team (Late Contact Info) Description 02/06/2023 2:30 PM CDT Office Visit [facility] [address] [address] Gaston Tejeda NP [address] [place] [address] [address] [place] [address] Vaginal spotting (Primary Dx); Abdominal cramping Social History Tobacco Use Types Packs/Day Years [...] Sign Reading Time Taken Comments Blood Pressure 139/84 02/06/2023 2:26 PM CDT Pulse 66 02/06/2023 2:26 PM CDT Temperature 36.8 ??C (98.3 ??F) 02/06/2023 2:26 PM CD T Respiratory Rate 18 02/06/2023 2:26 PM CDT Oxygen Saturation 98% 02/06/2023 2:26 PM CDT Inhaled Oxygen Concentration - - Weight 133.3 kg (293 lb 12.8 oz) 02/06/2023 2:26 PM CDT Height 175 cm (5' 8.9 ) 02/06/2023 2:26 PM CDT Body Mass Index 43.52 02/06/2023 2:26 PM CDT documented in this encounter Progress Notes * Gaston Tejeda NP - 02/06/2023 2:30 PM CDT Images from the original note were not included. Subjective/Objective Patient ID: Kinga Amaya is a 32 y.o. female. Chief Complaint Vaginal Pain (X 1 week, discomfort and spotting, X 2 weeks, ) [facility] of vaginal spotting and vaginal discomfort for the past week, patient states she had Nexplanon placed the end of December and then had a normal cycle at the beginning of January and then last week she began to have some irregular spotting. Patient states this week she started with some vaginal discomfort irritation feeling and last night started withlower abdominal cramping. Patient denies fever, nausea or vomiting. Patient denies any known exposures to STDs. Review of Systems Constitutional: Negative for chills, diaphoresis, fatigue and fever. Respiratory: Negative. Cardiovascular: Negative. Gastrointestinal: Negative for constipation, diarrhea, nausea and vomiting. Genitourinary: Positive for pelvic pain (Cramping) and vaginal pain. Negative for difficulty urinating, dysuria, flank pain, frequency, hematuria, urgency, vaginal bleeding and vaginal discharge. Musculoskeletal: Negative for back pain. Neurological: Negative for dizziness and headaches. Physical Exam Vitals and nursing note reviewed. Exam conducted with a oracle architect present. Constitutional: General: She is awake. She is not in acute distress. Appearance: Normal appearance. She is not ill-appearing. HENT: Head: Normocephalic and atraumatic. Cardiovascular: Rate and Rhythm: Normal rate and regular rhythm. Heart sounds: Normal heart sounds. Pulmonary: Effort: Pulmonary effort is normal. Breath sounds: Normal breath sounds. Abdominal: General: Bowel sounds are normal. Palpations: Abdomen is soft. Tenderness: There is abdominal tenderness in the left lower quadrant. There is no right CVA tenderness, left CVA tenderness, guarding or rebound. Genitourinary: General: Normal vulva. Exam position: Supine. Pubic Area: No rash. Labia: Right: No rash or tenderness. Left: No rash or tenderness. Vagina: Bleeding (dark brown scant amount noted) present. No vaginal discharge, erythema or tenderness. Cervix: Normal. Neurological: Mental Status: She is alert and oriented to person, place, and time. Gait: Gait is intact. Gait normal. Psychiatric: Mood and Affect: Mood normal. Behavior: Behavior normal. Behavior is cooperative. Vitals: 02/06/23 1426 BP: 139/84 BP Location: Right arm Patient Position: Sitting Pulse: 66 Resp: 18 Temp: 36.8 ??C (98.3 ??F) TempSrc: Oral SpO2: 98% Weight: 133.3 kg (293 lb 12.8 oz) Height: 175 cm (5' 8.9 ) No results found. Past Medical History: Diagnosis Date Allergic Anxiety Bipolar 2 disorder (CMS/HCC) ([facility]) Eczema Current Outpatient Medications: ARIPiprazole (ABILIFY) 2 mg tablet, Take 1 tablet (2 mg total) by mouth nightly, Disp: , Rfl: etonogestreL (Nexplanon) 68 mg [...] total) by mouth nightly, Disp: , Rfl: No Known Allergies Social History Tobacco Use Smoking status: Never Smokeless tobacco: None Substance and Sexual Activity Drug use: Never Sexual activity: Yes Partners: Male control/protection: Implant Alcohol Use: Not on file History reviewed. No pertinent surgical history. Assessment/Plan Diagnoses and all orders for this visit: Vaginal spotting (Primary) - POCT urinalysis dipstick - Urine culture Urine, clean voided; Future - N. gonorrhoeae/C. trachomatis Amplification Urine; Future - Vaginitis panel Vaginal; Future Abdominal cramping - POCT urinalysis dipstick - Urine culture Urine, clean voided; Future - N. gonorrhoeae/C. trachomatis Amplification Urine; Future - Vaginitis panel Vaginal; Future Recent Results (from the past 4 hour(s)) POCT urinalysis dipstick Collection Time: 02/06/23 2:51 PM Result Value Ref Range Color, Urine, POC Yellow Clarity, ur, POC Clear Clear Glucose, ur, POC Negative Negative MG/DL Bilirubin, ur, POC Negative Negative, Small, Moderate, Large Ketones, ur, POC Negative Negative Specific [place], POC 1.025 1.003 - 1.030 Blood, ur, POC Moderate (A) Negative pH, ur, POC 7.0 5.0 - 8.0 Protein, ur, POC Negative Negative Urobilinogen, urine, POC 0.2 0.2 - 1.0 mg/dL Nitrite, ur, POC Negative Negative Leukocytes, ur, POC Negative Negative Lot Number 0 Patient Education: We will notify you in a couple days with test results If abdominal pain/cramping worsens at all, or you begin to run a fever, vomiting, etc. please present to the emergency room and follow-up with your OBGYN or PCP. If all tests come back negative and spotting remains please follow-up with PCP and or OBGYN Disposition Treatment plan including expectations, follow up, and return precautions discussed with patient/parent, verbalizes understanding. Medication dosage, use, and potential adverse reactions discussed with patient/parent. Advised to follow up with PCP if symptoms do not resolve as expected or sooner if condition worsens. Signs/symptoms warranting ER evaluation reviewed. Patient and/or guardian was given an opportunity to ask questions, questions answered. Gaston Tejeda NP This office note has been partially dictated using [employer] software, and as a result portions of the record may have been created with this software. Occasional wrong-word or '[id number]' substitutions may have occurred due to the inherent limitations of voice recognition software. Read the chartcarefully and recognize, using context, where substitutions have occurred. documented in this encounter Miscellaneous Notes * Addendum Note - Gaston Tejeda NP - 02/06/2023 2:30 PM CDTAddended by: GASTON TEJEDA on: 02/06/2023 02:57 PM Modules accepted: Orders * Addendum Note - Stephany Sun MA - 02/06/2023 2:30 PM CDTAddended by: STEPHANY SUN on: 02/06/2023 03:44 PM Modules accepted: Orders documented in this encounter Plan of Treatment Not on file documented as of this encounter Procedures Procedure Name Priority Date/Time Associated Diagnosis Comments POCT URINALYSIS DIPSTICK Routine 02/06/2023 2:51 PM CDT Vaginal spotting Abdominal cramping documented in this encounter Results * (ABNORMAL) POCT urinalysis dipstick (02/06/2023 2:51 PM CDT) Pathologist [facility] Color, Urine, POC Yellow Clarity, ur, POC Clear Clear Glucose, ur, POC Negative Negative MG/DL Bilirubin, ur, POC Negative Negative, Small, Moderate, Large Ketones, ur, POC Negative Negative Specific [place], POC 1.025 1.003 - 1.030 Blood, ur, POC Moderate(A) Negative pH, ur, POC 7.0 5.0 - 8.0 Protein, ur, POC Negative Negative Urobilinogen, urine, POC 0.2 0.2 - 1.0 mg/dL Nitrite, ur, POC Negative Negative Leukocytes, ur, POC Negative Negative Lot Number 0 Urine 02/06/2023 2:51 PM CDT Gaston Tejeda NP POINT OF CARE TEST ORDERABLES F inal Result * (ABNORMAL) Vaginitis panel Vaginal (02/06/2023 2:49 PM CDT) [facility] Saumya DNA probe Detected(A) Not Detected [facility] Comment:Testing performed by : [facility], [address] [place] [address]., [id number] Gardnerella DNA probe Not Detected Not Detected [facility] Comment:Testing performed by : [facility], [address] [place] [address]., [id number] Trichomonas DNA probe Not Detected Not Detected [facility] Comment: Interpretive Data Testing performed by [facility] via [employer]irm VPIII Microbial Identification Test, a [...] last revised on 2020. Testing performed by: [facility], [address] [place] [address]., [id number] Vaginal 02/06/2023 2:49 PM CDT 02/07/2023 1:28 PM CDT Gaston Tejeda NP LAB MICROBIOLOGY - GENERAL JACKIE RANGEL Final Result [facility] [id number] Department of Laboratories [place], [place] [id number] * N. gonorrhoeae/C. trachomatis Amplification Urine (02/06/2023 2:49 PM CDT) [facility] C. trachomatis source urine [facility] C. trachomatis RNA Negative Negative [facility] Comment: ADDITIONAL INFORMATION This report is intended for use in clinical monitoring and management of patients. It is not intended for use in medical-legal applications. N. gonorrhoeae source urine [facility] N. gonorrhoeae RNA Negative Negative [facility] Comment: ADDITIONAL INFORMATION This report is intended for use in clinical monitoring and management of patients. It is not intended for use in medical-legal applications. Test Performed by: [facility] [address] [place] [address] Store Warehouse Associate: Zackery Oneill M.D. Ph.D.; CLIA# [id number] Urine (None) 02/06/2023 2:49 PM CDT 02/06/2023 4:38 PM CDT us Gaston Tejeda NP LAB MICROBIOLOGY - GENERAL ALFONSO CLAIRE Final Result [facility] [id number] [place] [address] * (ABNORMAL) Urine culture Urine, clean voided [...] allergic patients, please contact the laboratory at [phone] to request susceptibility testing * ??* ??* [...] represents contamination with periurethral neil. (.) [facility] Comment:Testing performed by : [facility], [address], [place]., [address] Organism STREPTOCOCCUS AGALACTIAE (GROUP B STREPTOCOCCI) [facility] Organism (CLINICALLY INSIGNIFICANT GROWTH [facility] Urine, clean voided 02/06/2023 2:49 PM CDT 02/06/2023 7:57 PM CDT Narrative [facility] - 02/08/2023 11:14 AM CDT Testing performed by [facility] Microbiology Laboratory ([phone]) Gaston Tejeda NP LAB MICROBIOLOGY - [facility] JACKIE RANGEL Final Result [facility] [id number] [place] [address] documented in this encounter Visit Diagnoses Diagnosis Vaginal spotting- Primary Other specified noninflammatory disorder of vagina Abdominal cramping Abdominal pain, unspecified site Vaginal spotting Other specified noninflammatory disorder of vagina Abdominal cramping Abdominal pain, unspecified site documented in this encounter Historical Medications * This list may reflect changes made after this encounter. etonogestreL (Nexplanon) 68 mg implant by subdermal route 12/23/2022 ARIPiprazole (ABILIFY) 2 mg tablet Take 1 tablet (2 mg total) by mouth nightly 02/02/2023 added in this encounter Care Teams Fixed Wing Aircraft Crew Chief Relationship Specialty Start Date End Date Bhupendra Pacheco MD PCP - General Family Medicine 03/25/22 documented as of this encounter
--- OUTSIDE RECORDS SUMMARY | 2024-06-13 10:49 | XMS_ITS | Encounter Summary ---
Author Organization [facility] Address [address] [place] [address] Care Team Providers Care Can Technician Name Role Phone Bhupendra Pacheco MD Primary Care Provider [phone] Reason for Referral * Diagnostic Imaging (Routine) - Closed Specialty Diagnoses / Procedures Referred By Vasquez t Referred To Contact Diagnoses Right elbow pain Procedures XR Elbow Right 3+ Vw Bhupendra Pacheco MD Phone: tel: fax: [address] [address] Referral ID Status Reason Start Date Expiration Date Visits Re quested Visits Authorized [id number] Closed 03/25/2022 04/24/2023 1 1 Reason for Visit * Reason Comments Establish Care Encounter Details Date Type Department Care Team (Late st Contact Info) Description 03/25/2022 2:00 PM CDT Office Visit [facility] Primary Care at [address] [place] [address] Bhupendra Pacheco MD [address] [place] [address] [address] [place] [address] Right elbow pain (Primary Dx); Morbid obesity with BMI of 40.0-44.9, adult (HCC); Bipolar II disorder (CMS/HCC) (HCC); Class 3 severe obesity due to excess calories without serious comorbidity with body mass index (BMI) of 40.0 to 44.9 in adult ([facility]); Preventative health care Social History Tobacco Use Types Packs/Day Years Used Date Smoking Tobacco: Never Tobacco Cessation:Counseling Given: No PHQ-2 Answer Date Recorded PHQ-2 Total Score [...] Sign Reading Time Taken Comments Blood Pressure 134/87 03/25/2022 1:43 PM CDT Pulse 78 03/25/2022 1:43 PM CDT Temperature 36.6 ??C (97.8 ??F) 03/25/2022 1:43 PM CD T Respiratory Rate 18 03/25/2022 1:43 PM CDT Oxygen Saturation - - Inhaled Oxygen Concentration - - Weight 136.5 kg (301 lb) 03/25/2022 1:43 PM CDT Height 175 cm (5' 8.9 ) 03/25/2022 1:43 PM CDT Body Mass Index 44.58 03/25/2022 1:43 PM CDT documented in this encounter Ordered Prescriptions Prescription Sig Dispense Quantity Refills Last Filled Start Date End Date lamoTRIgine (LaMICtal) 100 mg tablet Take 1 tablet (100 mg total) by mouth 2 (two) times a day 180 tablet 03/25/2022 07/21/2022 documented in this encounter Progress Notes * Bhupendra Pacheco MD - 03/25/2022 2:00 PM CDT Images from the original note were not included. Subjective/Objective Patient ID: Kinga Amaya is a 31 y.o. female. Chief Complaint Establish Care HPI: Kinga Amaya 31 y.o. woman has a past medical history of Allergic, Anxiety, Bipolar 2 disorder (CMS/HCC) ([facility]), and Eczema. who presents to establish care. States that she does have some pain of the right elbow afte ra fall from a step ladder and she hit her elbow on the wall. No alleviating factors, does have some point tenderness but otherwise normal ROM of the elbow PHQ Screening Over the last 2 weeks, how often have you been bothered by any of the following problems? Little Interest or Pleasure in Doing Things: Not at all Feeling Down, Depressed, or Hopeless: Not at all PHQ-2 Total Score (If total score is 3 or more points, staff should administer the PHQ-9): 0 Over the past 2 weeks, how often have you been bothered by any of the following problems? Little Interest or Pleasure in Doing Things: Not at all Feeling Down, Depressed, or Hopeless: Not at all PHQ-2 Total Score (If total score is 3 or more points, staff should administer the PHQ-9): 0 No Known Allergies Current Outpatient Medications Medication Sig Dispense Refill hydrOXYzine (ATARAX) 25 mg tablet Take 25 mg by mouth every 8 (eight) hours as needed for anxiety lamoTRIgine (LaMICtal) 100 mg tablet omeprazole (PriLOSEC) 40 mg capsule Take 40 mg by mouth daily traZODone (DESYREL) 100 mg tablet Take 100 mg by mouth nightly No current facility-administered medications for this visit. Review of Systems Constitutional: Negative for chills and fever. Respiratory: Negative for cough, chest tightness and shortness of breath. Cardiovascular: Negative for chest pain and palpitations. Gastrointestinal: Negative for abdominal pain and diarrhea. Genitourinary: Negative for difficulty urinating. Neurological: Negative for headaches. BP 134/87 (BP Location: Left arm, Patient Position: Sitting) Pulse 78 Temp 36.6 ??C (97.8 ??F) (Temporal) Resp 18 Ht 175 cm (5' 8.9 ) Wt (!) 136.5 kg (301 lb) BMI 44.58 kg/m?? Body mass index is 44.58 kg/m??. Physical Exam Constitutional: Appearance: Normal appearance. She is obese. Cardiovascular: Rate and Rhythm: Normal rate and regular rhythm. Pulses: Normal pulses. Heart sounds: Normal heart sounds. Pulmonary: Effort: Pulmonary effort is normal. Breath sounds: Normal breath sounds. Musculoskeletal: General: Normal range of motion. Cervical back: Neck supple. Skin: General: Skin is warm and dry. Neurological: Mental Status: She is alert and oriented to person, place, and time. No results found for: WBC, HGB, HCT, MCV, LABPLAT Chemistry No results found for: SODIUM, POTASSIUM, CHLORIDE, CO2, ANIONGAP, BUNSER, CREATININE, GLUCOSE, URICACID, CALCIUM, BILITOT, PROTEIN, ALBUMIN, GFRNAA, ALKPHOS, AST, ALT, PHOS, MAGNESIUM No results found for: HGBA1C No results found for: GLUF, MICROALBUR, LDLCALC, CREATININE No results found for: CHOL, POCCHOL No results found for: HDL, POCHDL No results found for: LDLCALC, CLDL, HIRISKLDL, LDL, LDLC, LDLDIRECT, LDLMED, LDLP, POCLDL, SCRLDL,SMALLLDLP, TOTLDLC No results found for: TRIG, POCTRIG No results found for: POCCHDLR No results found for: POCNONHDL No results found for: POCCHLPL Assessment/Plan Diagnoses and all orders for this visit: Right elbow pain (Primary) Comments: paina fter trauma - likely bone bruising vs neuropathic. will check xray. nsaids as needed Orders: - XR Elbow Right 3+ Vw; Future Morbid obesity with BMI of 40.0-44.9, adult ([facility]) Assessment & Plan: Not at goal. Diet and lifestyle changes recommended Bipolar II disorder ([facility]) ([facility]) Assessment & Plan: Stable at this time. Will continue current regimen, and refer to psych to get her established. Orders: - Comprehensive metabolic panel; Future - TSH reflex to free T4; Future Class 3 severe obesity due to excess calories without serious comorbidity with body mass index (BMI) of 40.0 to 44.9 in adult ([facility]) Assessment & Plan: BMI Follow-up includes: nutrition counseling and exercise counseling. Orders: - Hemoglobin A1c; Future - Lipid panel; Future - TSH reflex to free T4; Future Preventative health care - CBC with auto differential; Future Other orders - lamoTRIgine (LaMICtal) 100 mg tablet; Take 1 tablet (100 mg total) by mouth 2 (two) times a day documented in this encounter Miscellaneous Notes * Assessment & Plan Note - Bhupendra Pacheco MD - 03/25/2022 2:24 PM CDTAssociated Problem(s): Morbid obesity with BMI of 40.0-44.9, adult ([facility]) Not at goal. Diet and lifestyle changes recommended * Assessment & Plan Note - Bhupendra Pacheco MD - 03/25/2022 2:23 PM CDTAssociated Problem(s): Class 3 severe obesity due to excess calories without serious comorbidity with body mass index (BMI) of 40.0 to 44.9 in adult ([facility]) BMI Follow-up includes: nutrition counseling and exercise counseling. * Assessment & Plan Note - Bhupendra Pacheco MD - 03/25/2022 2:13 PM CDTAssociated Problem(s): Bipolar II disorder (CMS/HCC) ([facility]) Stable at this time. Will continue current regimen, and refer to psych to get her established. documented in this encounter Plan of Treatment Not on file documented as of this encounter Results * XR Elbow Right 3+ Vw (03/25/2022 3:33 PM CDT) Anatomical Region Laterality Modality Upper Extremities, Elbow Right Compute d Radiography 03/27/2022 8:52 AM CDT Narrative 03/27/2022 8:53 AM CDT EXAM DESCRIPTION: ?? XR ELBOW RIGHT 3 OR MORE VIEWS REASON FOR STUDY: ?? right elbow pain after falling ?? Fell off a ladder 3 weeks ago ??Pain all over in right elbow ??No surgeries ? TECHNIQUE: ?? AP, lateral, and oblique ??radiographic views acquired of the right elbow. COMPARISON: ?? None FINDINGS: BONES/JOINTS: ?? No acute fracture, malalignment or osseous abnormalities. ?? Joint spaces are maintained. SOFT TISSUES: ?? Unremarkable. OTHER: ?? No other significant finding. IMPRESSION: ??No acute osseous abnormality. THIS IS AN ELECTRONICALLY VERIFIED FINAL REPORT 03/27/2022 8:53 AM - Electronically signed by ??Mani RAMIRES: D: ??03/27/2022 8:53 AM T: ??03/27/2022 8:53 AM Report ID: [id number] Reading Location: ??[id number] Procedure Note Mani Leija MD - 03/27/2022 EXAM DESCRIPTION: XR ELBOW RIGHT 3 OR MORE VIEWS REASON FOR STUDY: right elbow pain after falling Fell off a ladder 3 weeks ago Pain all over in right elbow No surgeries TECHNIQUE: AP, lateral, and oblique radiographic views acquired of the right elbow. COMPARISON: None FINDINGS: BONES/JOINTS: No acute fracture, malalignment or osseous abnormalities. Joint spaces are maintained. SOFT TISSUES: Unremarkable. OTHER: No other significant finding. IMPRESSION: No acute osseous abnormality. THIS IS AN ELECTRONICALLY VERIFIED FINAL REPORT 03/27/2022 8:53 AM - Electronically signed by Mani Leija M.D. BG: BG Report ID: [id number] Reading Location: [id number] Bhupendra Pacheco MD IMG XR PROCEDURES Final Result * TSH reflex to free T4 (03/25/2022 3:19 PM CDT) TSH 1.20 0.30 - 4.20 mcIUnit/mL [facility] ([place]) Blood 03/25/2022 3:19 PM CDT 03/25/2022 5:15 PM CDT Bhupendra Pacheco MD LAB BLOOD ORDERABLES Final Resul t [facility] ([place]) [address] [facility] Department of Laboratories [place], [place] [id number] * Lipid panel (03/25/2022 3:19 PM CDT) Cholesterol 146 30 - 199 mg/dL [facility] ([place]) Comment: Interpretive Data Ages < or = [...] on 2018. Triglycerides 71 <=149 mg/dL [facility]) Comment: Interpretive Data Ages < or = [...] on 2018. HDL 44 >=40 mg/dL [facility]) Comment: Interpretive Data Ages < or = [...] ORDERABLES Final Resul t Performing Organization Address [facility] Co de Phone Number [facility] ([place]) [address] [facility] [place] [address] * Hemoglobin A1c (03/25/2022 3:19 PM CDT) Hgb A1C 5.0 4.0 - 5.6 % [facility] ([place]) Estimated Average Glucose 97 mg/dL [facility] ([place]) Comment: The ADA recommends reporting an estimated Average Glucose (eAG) with all Hemoglobin A1c results using the equation derived from a study of 507 normal and diabetic adults. ??Minority populations were underrepresented and children were not included. ?? (Diabetes Care 31:0204-9499, 2008). ??The eAG is not equivalent to a fasting glucose. Blood 03/25/2022 3:19 PM CDT 03/25/2022 5:15 PM CDT Bhupendra Pacheco MD LAB BLOOD ORDERABLES Final Resul t Performing Organization Address [facility] Co de Phone Number [facility] ([place]) [address] [facility] [place] [address] * Comprehensive metabolic panel (03/25/2022 3:19 PM CDT) Sodium 140 135 - 145 mmol/L [facility] ([place]) Potassium, pl 3.6 3.3 - 4.9 mmol/L [facility] ([place]) Chloride 103 97 - 110 mmol/L [facility] ([place]) CO2 28 22 - 32 mmol/L [facility] ([place]) Anion gap 8 2 - 15 mmol/L [facility] ([place]) BUN 13 8 - 25 mg/dL [facility] ([place]) Creatinine 0.69 0.60 - 1.10 mg/dL [facility] ([place]) Glucose 89 70 - 199 mg/dL [facility] ([place]) Comment: Interpretive Data Fasting glucose >/= [...] MD LAB BLOOD ORDERABLES Final Resul t [facility] ([place]) [address] [facility] Department of Laboratories [place], [place] [id number] * CBC with auto differential (03/25/2022 3:19 [...] ([place]) MCV 83.9 81.3 - 96.4 fL [facility] ([place]) MCH 28.1 27.1 - 33.3 pg [facility] ([place]) MCHC 33.5 32.3 - 35.7 g/dL [facility] ([place]) RDW CV 12.5 11.1 - 14.9 % [facility] ([place]) RDW SD 38.4 35.7 - 48.1 fL [facility] ([place]) NRBC abs 0.00 0.00 - 0.01 K/cumm [facility] ([place]) Blood 03/25/2022 3:19 PM CDT 03/25/2022 5:15 PM CDT us Bhupendra Pacheco MD LAB BLOOD ORDERABLES Final Resul t [facility] ([place]) [address] [facility] Department [place] [address] documented in this encounter Visit Diagnoses Diagnosis Right elbow pain- Primary Pain in joint, upper arm Morbid obesity with BMI of 40.0-44.9, adult ([facility]) Bipolar II disorder ([facility]/HCC) ([facility]) Other bipolar disorders Class 3 severe obesity due to excess calories without serious comorbidity with body mass index (BMI) of 40.0 to 44.9 in adult ([facility]) Preventative health care Routine general medical examination at a health care facility Right elbow pain Pain in joint, upper arm documented in this encounter Discontinued Medications Medication Sig Discontinue Reason Start Date End Da te lamoTRIgine (LaMICtal) 100 mg tablet Reorder 03/13/2022 03/25/2022 documented as of this encounter Historical Medications * This list may reflect changes made after this encounter. omeprazole (PriLOSEC) 40 mg capsule Take 1 capsule (40 mg total) by mouth daily traZODone (DESYREL) 100 mg tablet Take 1 tablet (100 mg total) by mouth nightly hydrOXYzine (ATARAX) 25 mg tablet Take 1 tablet (25 mg total) by mouth every 8 (eight) hours as needed for anxiety lamoTRIgine (LaMICtal) 100 mg tablet 03/13/2022 03/25/2022 added in this encounter Care Teams Can Technician Relationship Specialty Start Date End Date Bhupendra Pacheco MD PCP - General Family Medicine 03/25/22 documented as of this encounter
--- OUTSIDE RECORDS SUMMARY | 2024-06-13 10:49 | XMS_ITS | Clinical Summary ---
Author Organization [facility] Address [address] [place] [address] Phone Care Team Providers Care Crushing Machine Operator Name Role Phone Bhupendra Pacheco MD Primary Care Provider [phone] Allergies No known active allergies Medications hydrOXYzine [...] Noted Date Diagnosed Date Bipolar II disorder ([facility]) 03/25/2022 Assessment & Plan (03/25/2022 2:13 PM [...] at goal. Diet and lifestyle changes recommended Encounters Date Type Department Care Team Description 05/04/2024 6:46 PM MOBILE ELECTRONICS INSTALLER - 05/04/2024 11:59 PM MOBILE ELECTRONICS INSTALLER Hospital Encounter [address] [address] Exposure to syphilis Discharge Disposition: Discharge to home or self care 05/04/2024 8:15 AM MOBILE ELECTRONICS INSTALLER Lab [facility] Outpatient Lab at [address] [address] Class 3 severe obesity due to excess calories without serious comorbidity with body mass index (BMI) of 40.0 to 44.9 in adult (HCC) (Primary Dx) 05/03/2024 7:27 PM MOBILE ELECTRONICS INSTALLER - 05/03/2024 11:59 PM MOBILE ELECTRONICS INSTALLER Hospital Encounter [address] [address] Exposure to syphilis Discharge Disposition: Discharge to home or self care 05/03/2024 7:15 PM MOBILE ELECTRONICS INSTALLER Office Visit [facility] Convenient Care at [address] [address] Danielle Patel NP Exposure to syphilis (Primary Dx) 03/19/2024 3:45 PM CDT Office Visit [facility] Convenient Care at [address] [address] Karthikeyan Tejeda NP Left upper quadrant pain (Primary Dx); Nausea from Last 3 Months Immunizations Name Administration Dates Next Due Influenza, Unspecified 03/25/2022(Deferr ed: Patient Refused),08/19/2021(Deferred: Patient Refused) Moderna SARS-CoV-2 Monovalen t Vaccination (12+ YRS) 08/27/2020,07/28/2020 Medical History Medical History Date Comments Bipolar 2 disorder (CMS/HCC) (HCC) Eczema Allergic Anxiety Family History Medical History Relation Name Comments Atrial fibrillation Father Diabetes type II Father Hyperlipidemia Father Hypertension Father Hypothyroidism Maternal Grandmother Atrial fibrillation Mother Hypertension Mother Memory loss Mother Skin cancer Mother Prostate cancer Mother's Brother Ovarian cancer Mother's Sister Heart disease Paternal Grandfather Breast cancer Paternal Grandmother Anxiety disorder Sister Depression Sister Relation Name Status Comments Father Alive Maternal Grandmother Mother Alive Mother's Brother Alive Mother's Sister Paternal Grandfather Paternal Grandmother Sister Social History Tobacco Use Types Packs/Day Years [...] on file Sexual Orientation Not on file Obstetrics History Last Filed Vital Signs Vital Sign Reading Time Taken Comments Blood Pressure 136/86 05/03/2024 7:15 PM MOBILE ELECTRONICS INSTALLER Pulse 78 05/03/2024 7:15 PM MOBILE ELECTRONICS INSTALLER Temperature 36.8 ??C (98.3 ??F) 05/03/2024 7:15 PM CS T Respiratory Rate 20 05/03/2024 7:15 PM MOBILE ELECTRONICS INSTALLER Oxygen Saturation 99% 05/03/2024 7:15 PM MOBILE ELECTRONICS INSTALLER Inhaled Oxygen Concentration - - Weight 136.1 kg (300 lb) 05/03/2024 7:15 PM MOBILE ELECTRONICS INSTALLER Height 175.3 cm (5' 9 ) 05/03/2024 7:15 PM MOBILE ELECTRONICS INSTALLER Body Mass Index 44.3 05/03/2024 7:15 PM MOBILE ELECTRONICS INSTALLER Plan of Treatment Health Maintenance Due Date Last Done Comments Cervical Cancer Screening 1989 DTaP/Tdap/Td Vaccine (1 - Tdap) 2000 Varicella Vaccines (1 of 2 - 13+ 2-dose series) 2002 Hepatitis B Screening 2007 Regular Well Visit/Exam 18-64 2007 Depression Screening 03/25/2023 03/25/2022 Covid-19 Vaccine (3 - 2023-2 5 season) 2024 08/27/2020, 07/28/2020 Influenza Vaccine (#1) 2024 Hepatitis C Screening Completed 05/04/2024 HPV Vaccines Aged Out No longer eligi ble based on patient's age to complete this topic Pneumococcal vaccine <65 Aged Out No longer eligible based on patient's age to complete this topic Procedures Procedure Name Priority Date/Time Associated Diagnosis Comments HIV 1/2 ANTIBODY PLUS P24 ANTIGEN Routine 05/04/2024 8:26 AM MOBILE ELECTRONICS INSTALLER Exposure to syphilis RPR Routine 05/04/2024 8:26 AM MOBILE ELECTRONICS INSTALLER Exposure to syphilis HEPATITIS PANEL, ACUTE Routine 8:26 AM MOBILE ELECTRONICS INSTALLER Exposure to syphilis VAGINITIS PANEL Routine 05/03/2024 7:27 PM MOBILE ELECTRONICS INSTALLER Exposure to syphilis N. GONORRHOEAE/C. TRACHOMATIS AMPLIFICATION Routine 05/03/2024 7:27 PM MOBILE ELECTRONICS INSTALLER Exposure to syphilis from Last 3 Months Results * HIV 1/2 Antibody plus p24 Antigen Blood (05/04/2024 8:26 AM MOBILE ELECTRONICS INSTALLER) HIV 1/2 ab + p24 ag Nonreactive Nonreactive Comment: Nonreactive for HIV-1 antigen and HIV-1/HIV-2 antibodies. No laboratory evidence of HIV infection. If acute HIV infection is suspected, consider testing for HIV-1 RNA. Blood 05/04/2024 8:26 AM MOBILE ELECTRONICS INSTALLER 05/04/2024 7:24 PM MOBILE ELECTRONICS INSTALLER us Danielle Patel NP LAB MICROBIOLOGY - GENERAL ORDERABLES Final Result [facility] [id number] Department [place] [address] * Hepatitis panel, acute Blood (05/04/2024 8:26 AM MOBILE ELECTRONICS INSTALLER) Hep A IgM Nonreactive Nonreactive Comment: Interpretive Data: If Hep A IgM Ab is reported as Equivocal, a new sample should be drawn in two weeks for testing. Current interpretive data was last revised on 19. Hep B core IgM Nonreactive Nonreactive [facility] Comment: Interpretive Data If HepB Core IgM Ab is reported as Equivocal, a new sample should be drawn in two weeks for testing. Current interpretive data was last revised on 19. Hep C Ab Nonreactive Nonreactive [facility] Comment: Interpretive Data Nonreactive: Antibodies [...] last revised on 2019. HepBsAg Nonreactive Nonreactive [facility] Blood 05/04/2024 8:26 AM MOBILE ELECTRONICS INSTALLER 05/04/2024 7:24 PM MOBILE ELECTRONICS INSTALLER Danielle Patel NP LAB MICROBIOLOGY - GENERAL ORDERABLES Final Result [facility] [id number] Department [place] [address] * RPR Blood (05/04/2024 8:26 AM MOBILE ELECTRONICS INSTALLER) RPR Nonreactive Nonreactive Blood 05/04/2024 8:26 AM MOBILE ELECTRONICS INSTALLER 05/04/2024 7:24 PM MOBILE ELECTRONICS INSTALLER Danielle Patel NP LAB MICROBIOLOGY - GENERAL ORDERABLES Final Result [facility] [id number] Department [place] [address] * N. gonorrhoeae/C. trachomatis Amplification Vaginal (05/03/2024 7:27 PM MOBILE ELECTRONICS INSTALLER) Pathologist [facility] C. trachomatis Not Detected [facility] Comment:Testing performed by : [facility], [address] [place] [address]., [id number] N. gonorrhoeae Not Detected [facility] Comment: Interpretive Data This assay detects Chlamydia trachomatis and Neisseria gonorrhoeae by nucleic acid amplification testing (NAAT). This assay has been cleared by the [place] Food and Drug administration. The performance characteristics of this test have been verified by the [facility] Molecular Infectious Disease laboratory. The performance characteristics of this test have not been evaluated in individuals less than 14 years of age. Current Interpretive Data was last revised on 2023. Testing performed by: [facility], [address] [place] [address]., [id number] Vaginal (None) 05/03/2024 7: 27 PM MOBILE ELECTRONICS INSTALLER 05/04/2024 10:43 AM MOBILE ELECTRONICS INSTALLER Danielle Patel NP LAB MICROBIOLOGY - GENERAL ORDERABLES Final Result [facility] [id number] Department of Laboratories [place], [place] [id number] [facility] * Vaginitis panel Vaginal (05/03/2024 7:27 PM MOBILE ELECTRONICS INSTALLER) Pathologist [facility] Saumya DNA probe Not Detected Not Detected Comment:Testing performed by : [facility], [address] [place] [address]., [id number] Gardnerella DNA probe Not Detected Not Detected [facility] Comment:Testing performed by : [facility], [address] [place] [address]., [id number] Trichomonas DNA probe Not Detected Not Detected [facility] Comment: Interpretive Data Testing performed by [facility] via Affirm VPIII Microbial Identification Test, a [...] last revised on 2020. Testing performed by: [facility], [facility] [place]., [address] Vaginal 05/03/2024 7:27 PM MOBILE ELECTRONICS INSTALLER 05/04/2024 1:04 PM MOBILE ELECTRONICS INSTALLER us Danielle Patel NP LAB MICROBIOLOGY - GENERAL ORDERABLES Final Result [facility] [id number] Department [place] [address] from Last 3 Months Insurance [employer] [facility] [id number] [employer] [facility] [id number] Care Teams Crushing Machine Operator Relationship Specialty Start Date End Date Bhupendra Pacheco MD PCP - General Family Medicine 03/25/22
--- OUTSIDE RECORDS SUMMARY | 2024-06-13 10:49 | XMS_ITS | Encounter Summary ---
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 GONORRHOEAE/C. 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, [address] [place] [address]., [id number] Gardnerella DNA probe Not Detected Not Detected [facility] Comment:Testing performed by : [facility], [address] [place] [address]., [id number] Trichomonas DNA probe Not Detected Not Detected [facility] Comment: Interpretive Data Testing performed by [facility] via Affirm VPIII Microbial Identification [...] last revised on 2020. Testing performed by: [facility], [address] [place] [address]., [id number] Vaginal 05/03/2024 7:27 PM ENGINE TURNER 05/04/2024 1:04 PM ENGINE TURNER Danielle Patel NP LAB MICROBIOLOGY - GENERAL ORDERABLES Final Result Performing Organization Address [facility] Co de Phone Number [facility] ZHOU [address] [place] [address] * N. gonorrhoeae/C. trachomatis Amplification Vaginal (05/03/2024 7:27 PM ENGINE TURNER) C. trachomatis Not Detected [facility] Comment:Testing performed by : [facility], [address] [place] [address]., [id number] N. gonorrhoeae Not Detected [facility] Comment: Interpretive Data This assay detects Chlamydia trachomatis and Neisseria gonorrhoeae by nucleic acid amplification testing (NAAT). This assay has been cleared by the [place] Food and Drug administration. The performance characteristics of this test have been verified by the [facility] Molecular Infectious Disease laboratory. The performance characteristics of this test have not been evaluated in individuals less than 14 years of age. Current Interpretive Data was last revised on 2023. 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
--- OUTSIDE RECORDS SUMMARY | 2024-06-13 10:49 | XMS_ITS | Encounter Summary ---
Author Organization [facility] Address [address] [place] [address] Care Team Providers Care Armored Vehicle Officer Name Role Phone Bhupendra Pacheco MD Primary Care Provider [phone] Reason for Referral * Diagnostic Imaging (Routine) - Closed Specialty Diagnoses / Procedures Referred By Vasquez carmen Referred To Contact Diagnoses Right elbow pain Procedures XR Elbow Right 3+ Vw Bhupendra Pacheco MD Phone: tel: fax: [address] [phone] Referral ID Status Reason Start Date Expiration Date Visits Re quested Visits Authorized [id number] Closed 03/25/2022 04/24/2023 1 1 Reason for Visit * Diagnostic Imaging (Routine) - Closed Specialty Diagnoses / Procedures Referred By Vasquez carmen Referred To Contact Diagnoses Right elbow pain Procedures XR Elbow Right 3+ Vw Bhupendra Pacheco MD Phone: tel: fax: [address] [phone] Referral ID Status Reason Start Date Expiration Date Visits Re quested Visits Authorized [id number] Closed 03/25/2022 04/24/2023 1 1 Encounter Details Date Type Department Care Team (Latest Contact Info) Description 03/25/2022 3:12 PM CDT - 03/25/2022 11:59 PM CDT Hospital Encounter [facility] [address] [place] [id number] Right elbow pain Discharge Disposition: Discharge to home or self [...] this encounter Medications at Time of Discharge hydrOXYzine (ATARAX) 25 mg tablet Take 1 tablet (25 mg total) by mouth every 8 (eight) hours as needed for anxiety omeprazole (PriLOSEC) 40 mg capsule Take 1 capsule (40 mg total) by mouth daily traZODone (DESYREL) 100 mg tablet Take 1 tablet (100 mg total) by mouth nightly lamoTRIgine (LaMICtal) 100 mg tablet Take 1 tablet (100 mg total) by mouth 2 (two) times a day 180 tablet 03/25/2022 07/21/2022 documented as of this encounter Discharge Disposition Disposition Code Departure Means Destination Discharge to home or self care documented in this encounter Plan of Treatment Not on file documented as of this encounter Procedures Procedure Name Priority Date/Time Associated Diagnosis Comments XR ELBOW RIGHT 3 OR MORE VIEWS Schedule Routine, Read Routine (OP Routine) 03/25/2022 3:33 PM CDT Right elbow pain documented in this encounter Results * XR Elbow Right [...] 8:53 AM - Electronically signed by ??Mani Leija M.D. BG: D: ??03/27/2022 8:53 AM T: ??03/27/2022 8:53 AM Report ID: [id number] Reading Location: ??[id number] Procedure Note Mani Leija MD - 03/27/2022 [...] Electronically signed by Mani Leija M.D. BG: Report ID: [id number] Reading Location: [place] [address] us Bhupendra Pacheco MD IMG XR PROCEDURES Final Result documented in this encounter Visit Diagnoses Diagnosis Right elbow pain Pain in joint, upper arm documented in this encounter Care Teams Armored Vehicle Officer Relationship Specialty Start Date End Date Bhupendra Pacheco MD PCP - General Family Medicine 03/25/22 documented as of this encounter
--- NOTE | 2025-06-04 09:23 | MMUS_ITS ---
Corrected Report 06/21/2024 Recreated report did not cross over to Expanse This report was recreated on 06/21/2024 Original report was signed by NURSE. EXAMINATION: MM diagnostic deb BI w ling, US breast LT limited HISTORY: Left breast intramammary lymph node TECHNIQUE: 3-D tomosynthesis images of the breasts were performed and synthetic 2-D images were generated. CAD analysis was submitted and interpreted. High resolution limited left breast ultrasound was performed. COMPARISON: 09/17/2022 BREAST PARENCHYMAL COMPOSITION:Not Dense. The breasts are almost entirely fatty FINDINGS: MAMMOGRAPHIC FINDINGS: Bilateral intramammary lymph nodes are present. No suspicious mass lesion or distortion seen. Stable parenchymal appearance as compared to prior exam. No suspicious tumor calcifications. ULTRASOUND: No abnormality seen sonographically in the region scanned the 3:00 position left breast. IMPRESSION: No evidence for malignancy. Intramammary lymph nodes are present, benign. BI-RADS Category 2: Benign finding(s). NURSE ? MTDD
== END 2024-06-04 13:21 | disposition home or self-care (01) ==
PROVIDERS: Visit Provider Nurse Practitioner
DX: N63.20 Unspecified lump in the left breast, unspecified quadrant (principal); R92.8 Other abnormal and inconclusive findings on diagnostic imaging of breast
CPT/HCPCS: 77062; 77066; G0279

== ENCOUNTER 2024-06-05 07:53 | Outpatient (CLI) | payer OTHER, SELFPAY | END 2024-06-05 07:54 | disposition home or self-care (01) | PROVIDERS: Visit Provider Nurse Practitioner | DX: N63.20 Unspecified lump in the left breast, unspecified quadrant (principal); R92.8 Other abnormal and inconclusive findings on diagnostic imaging of breast | CPT/HCPCS: 76642 ==

== ENCOUNTER 2024-09-23 20:32 | Emergency (ER) | payer OTHER, SELFPAY ==
[2024-09-23] VITALS (10 sets, daily range): BP systolic 130–155; BP diastolic 81–95; PULSE 92; RESP 16; TEMP 36.8; O2SAT 97–99
--- NOTE | ~2024-09-23 | CT_ITS ---
History: Fall PROCEDURE: CT cervical spine without intravenous contrast. COMPARISON: None TECHNIQUE: Multiple contiguous axial images of the cervical spine were performed without the administration of i ntravenous contrast. DLP: 574 mGy-cm FINDINGS: Straightening of the normal curvature of the cervical spine is identified, likely muscular in origin. No acute fractures are present. The bilateral lung apices are unremarkable. No soft tissue abnormality is present. The airway is patent. Impression: Straightening of the normal curvature of the cervical spine, likely muscular in origin. No acute fracture. Reviewed, dictated and finalized at location A. Impression: Straightening of the normal curvature of the cervical spine, likely muscular in origin. No acute fracture.
--- NOTE | ~2024-09-23 | CT_ITS ---
History: Fall PROCEDURE: CT head without contrast. COMPARISON: None TECHNIQUE: Axial imaging of the head performed from the skull base to the vertex without IV contrast. Sagittal a nd coronal reformations obtained. DLP: 681 mGy-cm FINDINGS: The ventricles are normal in size, shape and position. There is no mass, mass effect or midline shift. There is no abnormal extra-axial fluid collection or intracranial hemorrhage. Visualized paranasal sinuses are clear. The mastoid air cells are well aerated. No acute displaced fractures within the overlying cranium. Impression: No acute intracranial hemorrhage or suspicious mass effect. Reviewed, dictated and finalized at location A. Impression: No acute intracranial hemorrhage or suspicious mass effect.
--- OUTSIDE RECORDS SUMMARY | 2024-09-23 20:34 | XMS_ITS | Data Portability ---
Author Organization [facility] [place] Address [address] [place] [address] Care Team Providers Care Synthetic Filament Spinner Name Role Phone ORA MUSTAFA Primary Care Provider [phone] Assessment Encounter Date Assessment Date Assessment LastModified by Organization Details LastModified Time 05/24/2024 05/24/2024 Annual gynecological exam performed. Patient will come back in a year unless there are new symptoms. [email or web address] Not available 05/24/2024 16:14:33 Plan of Treatment Reminders Order Date Submit Date Provider Last Modified By Organization Details Last Modified Time Details Appointments None recorded. Lab test, urine 2023 [email or web address] 1 [facility] [address], [place], [address], 14:29:44 hbcab (hepatitis B core Ab) igm, serum 2023 024 [facility] (Lab), [address], [place], [address], 4 12:03:34 HBsAg (hepatitis B surface Ag), serum 2023 024 [facility] (Lab), [address], [place], [address], 4 12:03:34 hepatitis C virus Ab, serum 2023 024 [facility] (Lab), [address] [place], [address], 4 12:03:33 HIV 1+2 AB + HIV 1 p24 Ag, qualitative immunoassay , serum 2023 024 [facility] (Lab), [address], [place], [address], 4 12:03:33 RPR (rapid plasma reagin), serum 2023 024 [facility] (Lab), [address], [place], [address], 4 12:03:35 Referral None recorded. Procedures None recorded. Surgeries None recorded. Imaging MAMMO, diagnostic, unilateral 2023 [facility], [address], [place], [address], 4 04:07:55 US, breast, unilateral 2023 024 [facility], [address], [place], [address], 5 11:11:55 US, transvagina l 2022 023 [email or web address] [place] [address], [place], [address], 3 20:46:34 Medication Orders estradiol 2 mg tablet 2022 023 [facility] #[id number], [address] [place], [address], 4 16:20:01 Nexplanon 68 mg subdermal implant 2022 023 Not available 3 13:36:48 Patient TargetsNo targets recorded. Patient InstructionsNo instructions recorded. Reason for Referral None Reported. Results Created Date Observation Date Name Description Value Unit Range Abnormal Flag Note LastModifiedBy Organization Detail LastModifiedTime 05/24/20 24 05/24/2024 IMAGE GUIDE D PAP AND HPV REGAR DLESS image guided Pap, HPV regardless of Pap result SEE RESULT S BELOW abnormal CASE REPOR T: Cytol ogy Gynec ologi ivan Repor t Case: [id number] Autho yanique lopez Provi magi: Margie Gtz, PATRICIO Luevnao cted: 05/24 1604 Order ing Locat ion: [place] Patho logy Recei nuno: 05/25 0845 First Scree n: Maura Dinero Patho logis t: Brittnee Obregon MD Speci men: Matthew brumfield Pap - Image d, Cervi x [...] Squam ous Cells of Undet ermin ed Radhai margo ce (ASC- US). Harley goldberg by Brittnee headley MD on 06/04 at 1237 CLERK OF SCALES ----- ----- ----- ----- ----- ----- ----- [...] ry: Hormo brinda (if appli cable ): SUGGE STED FOLLO W-UP: Follo w up as warra nted, based on curre nt guide lines and indiv idual patie nt consi derat ions. Not Available [facility] (Lab) [address], [place], [address], 06/04/2024 13:42:00 06/18/20 24 06/18/2024 HEPAT ITIS C ANTIB ERNIE SCREE N, REFLE X TO CONFI RMATI ON hepatitis C antibody Non-re active non-re active Antib odies to HCV Not Detec paige, does not exclu de the possi bilit y of expos ure to HCV. Not Available [facility] (Lab) [address] , [place], [address], 06/19/2024 12:03:33 06/18/20 24 06/18/2024 HIV 1/2 ANTIG EN/AN TIBOD Y, REFLE X CONFI RMATI ON HIV antigen/anti body Nonrea ctive nonrea ctive HIV-1 antig en and HIV-1 /HIV- 2 antib odies were not detec paige. No labor atory evide nce of HIV infec tion. Not Available [facility] (Lab) [address], [place], [address], 06/19/2024 12:03:33 06/18/20 24 06/18/2024 HEPAT ITIS B SURFA CE ANTIG EN hepatitis B surface antigen Non-re active non-re active This assay was perfo rmed using [employer] ratio n reage nts and test kits. Value s obtai pilar with other assay metho ds or kits canno t be used inter tsang eably . Not Available [facility] (Lab) [address], [place], [address], 06/19/2024 12:03:34 06/18/20 24 06/18/2024 HEPAT ITIS B CORE, IGM hepatitis B core IgM antibody Non-re active non-re active IgM anti- HBc not detec paige. Does not exclu de the possi bilit y of expos ure to or infec tion with HBV. Not Available [facility] (Lab) [address], [place], [address], 06/19/2024 12:03:34 06/18/20 24 06/18/2024 RPR SCREE N, REFLE X TITER /CONF IRMAT ION RPR screen Nonrea ctive nonrea ctive Not Available [facility] (Lab) [address], [place], [address], 06/19/2024 12:03:34 06/18/20 24 06/18/2024 SURGI IVAN PATHO LOGY surgical pathology SEE RESULT S BELOW CASE REPOR T: Surgi ivan Patho logy Repor t Case: [id number] Autho yanique lopez Provi magi: Patricio Delgado MD Colle cted: 06/18 1717 Order ing Locat ion: [place] Patho logy Recei nuno: 06/19 0208 Patho logis t: Too Agrawal MD Speci mens: A) - Endoc ervix , ECC bx B) - Cervi x, Cervi ivan bx ----- ----- ----- ----- ----- ----- ----- ----- ----- ----- ----- ----- ----- ----- ----- ----- ----- ---- FINAL DIAGN OSIS: A. Endoc ervix , curet tage: -Frag ments of benig n endoc ervic al and ectoc ervic al mucos a. B. Cervi x, biops y: -Sean gn ectoc ervic al mucos a. Elect carmen west obed d by Too mathews MD on 06/19 at 1223 CLERK OF SCALES ----- ----- ----- ----- ----- ----- ----- ----- ----- ----- ----- ----- ----- ----- ----- ----- ----- ---- CLINI IVAN INFOR MATIO N: Atypi ivan squam ous cells of undet ermin ed signi fican ce MICRO SCOPI C DESCR IPTIO N: A micro scopi c exami natio n was perfo rmed. GROSS DESCR IPTIO N: A. Endoc ervix . The speci men is label ed with the patie nt's name, yuriyemmy wagneri cs and ECC . Recei nuno in forma tameka is a 2.5 x 2.0 x 0.5 [address] of mucus and minut e white -mak tissu e. The entir e speci men is submi tted in one casse tte. Gross ed by Emmy willis B. Cervi x. The speci men is label ed with the patie nt's name, demog raphi cs and cerv ical BX . Recei nuno in forma tameka is are two piece s of white -mak tissu e each measu ring 0.5 cm. The entir e speci men is submi tted in one casse tte. Gross ed by Emmy willis Not Available [facility] (Lab) [address], [place], [address], 06/19/2024 13:26:15 06/18/20 24 06/18/2024 pregn bhanu test, urine HCG negati ve Not Available [facility] [address], [place], [address], 06/18/2024 14:29:18 10/26/19 23 09/17/2022 MAMMO , diagn ostic , digit al, bilat eral No observ ation record ed. [email or web address] [address], [place], [address], 11/01/2022 13:06:54 11/02/19 23 11/01/2022 US, trans vagin al No observ ation record ed. [place] [address], [place], [address], 11/01/2022 15:24:22 11/02/19 23 11/01/2022 US, trans vagin al No observ ation record ed. [facility] [address] [facility], [place], [address], 11/04/2022 20:53:02 06/21/19 25 06/05/2024 , sheila lopez teral No observ ation record ed. [address], [place], [address], 06/22/2024 11:17:57 06/21/19 25 06/05/2024 , sheila lopez teral No observ ation record ed. [address], [place], [address], 06/22/2024 11:17:57 Result Notes None recorded. Procedures Surgical History Date Name Laterality Status Provider Name and Address Organization Details Recorded Time 06/18/20 24 Colposcopy completed Elio Delgado MD [address], [place], [address], [place] [facility] 06/18/2024 17:13:52 12/30/20 24 [facility] 14:20:55 06/18/20 24 [facility] 06/18/2024 14:20:10 06/04/20 24 Date of Last Mammogram completed [facility] 06/18/2024 14:27:59 05/24/20 24 Date of Last Pap Smear completed [facility] 06/05/2024 18:52:45 12/24/19 23 Control Implant Removal completed Joycelyn Driver [facility] [address], [place], [address], [facility] 12/23/2022 13:32:43 12/24/19 23 Control Implant Insertion completed Joycelyn Driver [facility] [address], [place], [address], [facility] 12/23/2022 13:32:36 10/15/19 22 completed Caty Brooks [facility] 09/06/2022 11:20:16 06/20/19 16 Colposcopy completed [facility] 06/05/2024 18:54:35 06/20/19 00 extraction of wisdom tooth completed [facility] 06/18/2024 14:19:57 Imaging Results Imaging Date Name Status LastModified by Organization Details LastModified Time 09/17/2022 MAMMO, diagnostic, digital, bilateral completed [email or web address] [facility] [address], [place], [address], 11/01/2022 13:06:54 11/01/2022 US, transvaginal completed Amrik gresham [address], [place], [address], 11/01/2022 15:24:22 11/01/2022 US, transvaginal completed [facility] [address] [facility], [place], [address], 11/04/2022 20:53:02 06/05/2024 US, breast, unilateral completed [address], [place], [address], 06/22/2024 11:17:57 06/05/2024 US, breast, unilateral completed [place] [id number] [facility] [address], [place], [address], 06/22/2024 11:17:57 Procedure Notes None recorded. Medical Equipment None Reported. Allergies No known drug allergies Medications Name Sig Start Date Stop Date Status Note LastModified by Organization Details LastModified Time lamotrigine 200 mg tablet TAKE 1 TABLET BY MOUTH EVERY DAY 06/18 completed Not Available Not Available Not Available fluconazole 150 mg tablet TAKE 1 TABLET (150 MG TOTAL) BY MOUTH ONCE FOR 1 DOSE. 02/24 completed Not Available Not Available Not Available meloxicam 15 mg tablet 06/18 completed Not Available Not Available Not Available trazodone [...] Not Available aripiprazol e 5 mg tablet 06/18 completed Not Available Not Available Not Available bupropion [...] Updated DateTime 12/23/2022 172.72 cm 45.2 kg/m2 033082.93 g Geetha Chappell [facility] 12/23/2022 12:26:35 Date Recorded Systolic blood pressure Diastolic blood pressure Provider Name and Address Organization Details Last Updated DateTime 12/23/2022 128 mm[Hg] 78 mm[Hg] Joycelyn Driver [facility] [address], [place], [address], [facility] 12/23/2022 13:25:05 Date Recorded Body height Body mass index (BMI) Body weight Provider Name and Address Organization Details Last Updated DateTime 02/24/2023 172.72 cm 45 kg/m2 565285.34 g Geetha Chappell [facility] 02/24/2023 18:02:31 Date Recorded Systolic blood pressure Diastolic blood pressure Provider Name and Address Organization Details Last Updated DateTime 02/24/2023 122 mm[Hg] 80 mm[Hg] Joycelyn Driver [facility]- [address], [place], [address], [facility] 02/24/2023 18:17:34 Date Recorded Body height Body mass index (BMI) Body weight Systolic blood pressure Diastolic blood pressure Provider Name and Address Organization Details Last Updated DateTime 05/24/2024 172.72 cm 50 kg/m2 759115.8 9 g 137 mm[Hg] 80 mm[Hg] Amada Leigh [facility] 4 16:19:52 Date Recorded Body height Body mass index (BMI) Body weight Systolic blood pressure Diastolic blood pressure Provider Name and Address Organization Details Last Updated DateTime 06/18/2024 172.72 cm 48.8 kg/m2 482511.1 5 g 140 mm[Hg] 91 mm[Hg] Freida Salazar [facility] 4 14:18:35 Social History Question Answer Notes LastModified by Organizat ion Details LastModified Time Tobacco Smoking Status Never Smoker Mary Ellen Weller swetha, [facility] 09/10/2022 12:11:31 Do You Have [...] Or The Highest Degree You Have Received? 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 [id number] Information not available 09/06/2022 Do You Use [...] have difficulty walking or climbing stairs? No [email or web address] Information not available 09/10/2022 Are you able to walk? [email or web address] Information not available 09/06/2022 Are you able to care for yourself? Yes Information not available 09/10/2022 Do you have difficulty dressing or bathing? No [email or web address] Information not available 09/10/2022 What is your [...] History Statement/Question Response Date of Last Mammogram 06/04/2024 Flow Moderate Date of LMP 06/11/2024 N Was last menstrual period normal N STIs/STDs N 10/14/2021 Date of control 01/08/2020 Date of Last Colonoscopy Multiple Methods Desired Control Method Implant Abnormal Pap Yes On BCP's at Conception? N Colposcopy 06/18/2024 HPV Vaccine N Duration of Flow (days) 7 Current Control Method Implant Age at First Child 1 Are cycles usually normal N Frequency of Cycle (Q days) 14 Sexually Active? Y Menses Monthly Y Date of DEXA bone scan Age of first menstrual cycle 9 Date of Last Pap Smear 05/24/2024 Sexual Problems? N LMP Approximate 07/25/2019 Obstetrics History GPAL:G 0 P 0 0 0 0 Type Value Living 0 Total 0 Past Encounters Encounter ID Performer Location Encounter Start Date Encounter Closed Date Diagnosis/Indication Diagnosis SNOMED-CT Code Diagnosis ICD10 Code Diagnosis Note [id number] Joycelyn Driver [facility] [address] [address] 09/06/2022 11:17:47 09/08/2022 16:35:13 Abnormal uterine bleeding 0340037740 9100 N93.9 Will update US for irregular AUB on nexplanon. Might consider removing & replacing nexplanon sooner than 12/2022 if US/labs are wnl. Patient is to contact office or go to nearest ED/Urgent care if fever >/= 100.1, pain, excessive bleeding, unusual drainage or swelling in area of concern; or experienci ng worsening sx's or new onset of concerning sx's. Understand ing verbalized . All questions answered to patient satisfacti on. Time spent in visit is a total of 30 mins with at least 50% of visit consisting of counseling and review of plan of care. Cyst of right breast 056 2590503 4993168 N60.01 At end of visit mentioned abn breast lump right side.We agreed to updated imaging at this time based on exam & subjective complaints . [id number] [facility] [address],[facility] [place] [address] 09/10/2022 12:10:59 09/10/2022 13:27:41 Abnormal uterine bleeding 0630648232 9100 N93.9 [id number] Joycelyn Driver [facility] [address],[place] [address] 09/13/2022 09:56:47 09/13/2022 10:45:16 Cyst of right ovary 1454734102 5932863 N83.201 US reviewedNo family history of ovarian cancersNo sx'sToday we agreed to monitor & r/p US in 6-8wks & call sooner if any issues prior too. Time spent in visit is a total of 15 mins with at least 50% of visit consisting of counseling and review of plan of care. Patient is to contact office or go to nearest ED/Urgent care if fever >/= 100.1, pain, excessive bleeding, unusual drainage or swelling in area of concern; or experienci ng worsening sx's or new onset of concerning sx's. Understand ing verbalized . All questions answered to patient satisfacti on. Mass of left breast 1224 820900 3637891 N63.20 Need updated 6mos left breast mammo check.Orde red imaging [id number] [facility] [address],[place] [address] 11/01/2022 09:02:49 11/01/2022 09:34:26 Cyst of right ovary 0259828311 4580439 N83.201 [id number] Joycelyn Driver [facility] [address],[place] [address] 12/23/2022 12:14:23 12/23/2022 13:36:02 Removal of subcutaneous contraceptive 071806086 Z30.46 Removal site was cleansed with betadine and 3cc of lidocaine used for anesthesia . Device was removed in normal fashion without difficulty . Steri stips and pressure bandage placed. Insertion of subcutaneous contraceptive 798983689 Z30.9 Patient is here currently on her menses. She was given all the r/b/a of placement of the Nexplanon device and has signed the consent. She is fully aware of all possible side effects of the device and has decided to move forward with placement. Insertion site was cleansed with betadine and 3cc lidocaine used for anesthesia . Device was placed in the left arm per usual fashion w/o complicati on and patient instructed to f/u in one month or earlier if there are any si/sx of infection or hypersensi tivity at the insertion site [id number] Joycelyn Dirver [facility] [address],[place] [address] 02/24/2023 17:53:21 02/25/2023 12:28:13 Contraception care management 076351150 Z30.9 Today we agreed to addition of estradiol 2mg x 20 days in hopes of stopping the BTB/extend ed periods since placement of this device.Her UPT is negIf she is fine & issues resolved after taking this regimen then no need to f/u at this time; if still having issues contact office for appointmen t. Counseled on medication R/B's, Most common side effects, & use. All questions were answered to patient satisfacti on. Time spent in visit is a total of 15 mins with at least 50% of visit consisting of counseling and review of plan of care. [id number] RANJANA Alonso [place] [address] [address] 05/24/2024 16:08:59 05/25/2024 09:39:56 Gynecologic examination 11858957 Z01.419 WWEBC - nexplanonP ap - updatedSTI screen - gc/ct/tric h testing added to pap, HIV/Hep B&C/Syphil is testing ordered per pt requestRou celena labs - PCPRTC in 1 yr or sooner if needed It is strongly advised to have an annual flu shot and up can obtain at most pharmacies . If you have not had a TDap shot in the last 10 years you should obtain one as well. Discussed with patient & provided with informatio n regarding the HPV vaccine if applicable . Encourage safe sexual practices, to use condoms and limit partners if not already in a monogamous relationsh ip. Do monthly self breast exams. BRCA testing is now available for patients with strong genetic history of female cancer. If interested contact the office. Engage in regular exercise. Avoid tobacco and illicit drugs. This lifestyle behavior pattern will lead to less health conditions and longer life span. If BMI greater than 25 dietary consult advised. Questions answered. Breast lump 83813205 N63 .0 due for repeat 6 month left diagnostic deb with possible u/sorder given, encouraged to schedule Venereal d isease screening 663724182 Z11.3 Sexually t ransmitted infectious disease 1046919 A64 Contracept ion care management 333201807 Z30.9 all BC options discussedi nt in Mirena IUD, r/b/a reviewedif [facility] RTC for nexplanon removal with IUD insertion [id number] Elio Delgado MD [facility] [address] [address] 06/18/2024 13:47:28 06/18/2024 17:40:26 Screening procedure 78992991 Z13.9 Abnormal c ervical Papanicolaou smear 076734111 R87.619 patient is a 33-year-ol d female who presents for colposcopi c examinatio n. The exam was performed. She tolerated it well. Biopsy was taken of a vaguely aceto-whit e white area in the anterior lip of the cervix. ECC was performed. She tolerated it well. She will follow-up as needed. Health Concerns Section Related Observation LastModified by Organization Detai ls LastModified Time None Recorded Concern Status LastModified by Organization Details LastModified Time None Recorded Advance Directives Directive N: Payers Encounter Date Sequence Insurance Name Policy Number Policy [place] Covered Member ID [place] Member ID Guarantor Name 11/01/2022 1 [facility] [employer] Lupana Amaya [id number] OI Lupana R Amaya 12/23/2022 1 [facility] [employer] Lupana Amaya [id number] OI Lupana R Amaya 02/24/2023 1 [facility] [employer] Lupana Amaya [id number] OI Lupana R Amaya 05/24/2024 1 [facility] [employer] Lupana Amaya [id number] OI Lupana R Amaya 06/18/2024 1 [facility] [employer] Lupana Amaya [id number] OI Lupana R Amaya Notes Date Note Type Note Provider Name and Address Organization Details Recorded Time 12/23/2022 text/html Here today for nexplanon removal/resinsertio n. RANJANA Holliday- [address], [place], [address], [facility] 12/23/2022 13:34:58 02/24/2023 text/html Here today for complaints of BTB/extended menstrual bleeding since placement of nexplanon. Neg pain of abd/pelvis/flankNeg urinary sx'sNeg GI sx'sNeg N/V/F/C/DNeg Vag d/c, odor, irritation, itching RANJANA Holliday- [address], [place], [address], [facility] 02/24/2023 18:19:24 05/24/2024 text/html Annual GYNReport [...] other options RANJANA Alonso [address], [place], [address], [facility] 05/25/2024 09:15:11 06/18/2024 text/html this patient is a 33-year-old female presents for colposcopic examination. The procedure was explained to the patient in detail. She understands the procedure. She understands the risks, benefits, and alternatives. She has completed the informed consent process and is ready to proceed. Elio Delgado MD [address], [place], [address], [facility] 06/18/2024 17:15:15 OBGyn Episode No OBEpisode recorded.
--- OUTSIDE RECORDS SUMMARY | 2024-09-23 20:35 | XMS_ITS | Clinical Summary ---
Author Organization [facility] Address [address] [address] Phone Care Team Providers Care Emulsification Operator Name Role Phone Bhupendra Pacheco MD Primary Care Provider [phone] Allergies No known active allergies Medications hydrOXYzine [...] Noted Date Diagnosed Date Bipolar II disorder 03/25/2022 Assessment & Plan (03/25/2022 2:13 PM [...] goal. Diet and lifestyle changes recommended Immunizations Immunization Administration Dates Next Due Influenza, Unspecified 03/25/2022(Deferr ed: Patient Refused),08/19/2021(Deferred: Patient Refused) Moderna SARS-CoV-2 Monovalen t Vaccination (12+ YRS) 08/27/2020,07/28/2020 Medical History Medical History Date Comments Bipolar 2 disorder (HCC) Eczema Allergic Anxiety Family History Medical [...] Comments Blood Pressure 136/86 05/03/2024 7:15 PM AMMUNITION SUPERVISOR Pulse 78 05/03/2024 7:15 PM AMMUNITION SUPERVISOR Temperature 36.8 C (98.3 F) 05/03/2024 7:15 PM AMMUNITION SUPERVISOR Respiratory Rate 20 05/03/2024 7:15 PM AMMUNITION SUPERVISOR Oxygen Saturation 99% 05/03/2024 7:15 PM AMMUNITION SUPERVISOR Inhaled Oxygen Concentration - - Weight 136.1 kg (300 lb) 05/03/2024 7:15 PM AMMUNITION SUPERVISOR Height 175.3 cm (5' 9 ) 05/03/2024 7:15 PM AMMUNITION SUPERVISOR Body Mass Index 44.3 05/03/2024 7:15 PM AMMUNITION SUPERVISOR Plan of Treatment Health Maintenance Due Date [...] Procedure Name Priority Date/Time Associated Diagnosis Comments HEPATITIS PANEL, ACUTE Routine 05/04/2024 8:26 AM AMMUNITION SUPERVISOR Exposure to syphilis from Last 3 Months or Most Recently Relevant to Health Maintenance Results * Hepatitis panel, acute Blood (05/04/2024 8:26 AM AMMUNITION SUPERVISOR) Hep A IgM Nonreactive Nonreactive Comment: Interpretive Data: If Hep A IgM Ab is reported as Equivocal, a new sample should be drawn in two weeks for testing. Current interpretive data was last revised on 19. Hep B core IgM Nonreactive [facility] Comment: Interpretive Data If HepB Core IgM Ab is reported as Equivocal, a new sample should be drawn in two weeks for testing. Current interpretive data was last revised on 19. Hep C Ab Nonreactive Nonreactive [facility] Comment: Interpretive Data Nonreactive: Antibodies to HCV not detected. Does NOT exclude the possibility of recent exposure to HCV. Equivocal: Equivocal for HCV antibodies. Supplemental molecular testing will be automatically performed to determine infection status in accordance with current CDC screening recommendations. Reactive: Positive for HCV antibodies. This may represent current or past HCV infection. Supplemental molecular testing will be automatically performed to determine current infection status in accordance with current CDC screening recommendations. Interpretive data was last revised on 2019. HepBsAg Nonreactive Nonreactive [facility] Blood 05/04/2024 8:26 AM AMMUNITION SUPERVISOR 05/04/2024 7:24 PM AMMUNITION SUPERVISOR Danielle Patel NP LAB MICROBIOLOGY - GENERAL ORDERABLES Final Result [facility] [id number] Department of Laboratories [place] [phone] from Last 3 Months or Most Recently Relevant to Health Maintenance Insurance [place] [facility] [id number] [address] [facility] [id number] Care Teams Emulsification Operator Relationship Specialty Start Date End Date Bhupendra Pacheco MD PCP - General Family Medicine 03/25/22
--- OUTSIDE RECORDS SUMMARY | 2024-09-23 20:35 | XMS_ITS | Referral Summary ---
Author Organization [facility] Address [address] [address] Phone Care Team Providers Care Hook Up Driver Name Role Phone Bhupendra Pacheco MD Primary Care Provider [phone] Allergies No known active allergies Medications hydrOXYzine [...] Comments Blood Pressure 136/86 05/03/2024 7:15 PM CHANNEL DEVELOPMENT DIRECTOR Pulse 78 05/03/2024 7:15 PM CHANNEL DEVELOPMENT DIRECTOR Temperature 36.8 C (98.3 F) 05/03/2024 7:15 PM CHANNEL DEVELOPMENT DIRECTOR Respiratory Rate 20 05/03/2024 7:15 PM CHANNEL DEVELOPMENT DIRECTOR Oxygen Saturation 99% 05/03/2024 7:15 PM CHANNEL DEVELOPMENT DIRECTOR Inhaled Oxygen Concentration - - Weight 136.1 kg (300 lb) 05/03/2024 7:15 PM CHANNEL DEVELOPMENT DIRECTOR Height 175.3 cm (5' 9 ) 05/03/2024 7:15 PM CHANNEL DEVELOPMENT DIRECTOR Body Mass Index 44.3 05/03/2024 7:15 PM CHANNEL DEVELOPMENT DIRECTOR Plan of Treatment Not on file Procedures Procedure Name Priority Date/Time Associated Diagnosis Comments HEPATITIS PANEL, ACUTE Routine 05/04/2024 8:26 AM CHANNEL DEVELOPMENT DIRECTOR Exposure to syphilis from Last 3 Months or Most Recently Relevant to Health Maintenance Results * Hepatitis panel, acute Blood (05/04/2024 8:26 AM CHANNEL DEVELOPMENT DIRECTOR) Hep A IgM Nonreactive Nonreactive Comment: Interpretive Data: If Hep A IgM Ab is reported as Equivocal, a new sample should be drawn in two weeks for testing. Current interpretive data was last revised on 19. Hep B core IgM Nonreactive Nonreactive [facility] Comment: Interpretive Data If HepB Core IgM Ab is reported as Equivocal, a new sample should be drawn in two weeks for testing. Current interpretive data was last revised on 19. Hep C Ab Nonreactive Nonreactive [facility] Comment: Interpretive Data Nonreactive: Antibodies to [...] last revised on 2019. HepBsAg Nonreactive Nonreactive [facility] Blood 05/04/2024 8:26 AM CHANNEL DEVELOPMENT DIRECTOR 05/04/2024 7:24 PM CHANNEL DEVELOPMENT DIRECTOR us Danielle Patel NP LAB MICROBIOLOGY - GENERAL ORDERABLES Final Result [facility] [id number] Department [place] [id number] from Last 3 Months or Most Recently Relevant to Health Maintenance Insurance [facility] [id number] [facility] [id number] Care Teams Hook Up Driver Relationship Specialty Start Date End Date Bhupendra Pacheco MD PCP - General Family Medicine 03/25/22
--- NOTE | 2024-09-23 22:31 | ED.HEATRA ---
HPI - Head Injury General Chief complaint: Head Injury Stated complaint: fall, head injury Time Seen by Provider: 09/23/24 21:28 Source: patient Mode of arrival: ambulatory Limitations: no limitations History of Present Illness HPI Narrative: Patient presents with concern for a head injury after a fall. She thinks her ankle gave out and she fell face first striking her forehead. She feels dizzy and nauseated. No allergies. She is concerned about a concussion. This occurred at approximately 4:30 or 5pm and she states she has been having dizziness and nausea. No neck pain or loss of consciousness. No epistaxis. Headache is rated 7/10 in severity and described as a pressure across her forehead. Has a PCP. Related Data Allergies Allergy/AdvReac Type Severity Reaction Status Date / Time No Known Allergies Allergy Verified 09/23/24 20:33 [facility] Past Medical History Medical History Morbid obesity with BMI of 45.0-49.9, adult Social History Social History Occupation/Education: occupation Exam Narrative: GENERAL: Well-appearing, well-nourished, and in no acute distress. HEAD: Small hematoma middle inferior portion of forehead. EYES: Non injected, non icteric ENT: Nares clear, no rhinorrhea or epistaxis. No septal hematoma. NECK: Supple. CHEST: Speaking in full sentences. No respiratory distress. HEART: Regular rate and rhythm. . ABDOMEN: Morbid obesity but Soft, nondistended. EXTREMITIES: Normal range of motion. No lower extremity edema. SKIN: Warm, dry, no rash. NEURO: No focal deficits. Alert and oriented x3. PSYCH: Normal mood and affect. Course Vital Signs Vital signs: Vital Signs Oxygen Delivery Room Air 09/23/24 20:33 Temperature 98.2 F 09/23/24 20:42 Pulse Rate 92 09/23/24 20:42 Respiratory Rate 16 09/23/24 20:42 Blood Pressure 130/81 09/23/24 23:01 Pulse Oximetry 97 09/23/24 22:45 Oxygen Delivery Room Air 09/23/24 20:33 MDM - Head Injury MDM Narrative Medical decision making narrative: Patient presents with forehead pressure/headache after tripping when her ankle gave out and she fell forward striking her head on the concrete. No loss of consciousness. No neck pain. In the emergency department she is afebrile with a signs notable for hypertension. Imaging negative. Patient given analgesic medication and discharged with OTC pain medications. Provided a work note. Discussed concussion return to activity recommendations. Verifies understanding. Stable for discharge. Differential Diagnosis Differential diagnosis: Likely concussion without loss of consciousness, epidural hematoma, closed head injury, subarachnoid hematoma, postconcussion syndrome, subdural hematoma, concussion with loss of consciousness and other (nasal bone fracture , considered septal hematoma; ) Imaging Data Radiologist's impression: No acute intracranial hemorrhage or suspicious mass effect. Impression: Straightening of the normal curvature of the cervical spine, likely muscular in origin. No acute fracture. Discharge Plan Discharge Clinical Impression: Fall, Concussion without loss of consciousness Patient Disposition: Home Condition: Stable Instructions: Antibiotic Form, Concussion (ED), Head Injury (ED), Fall Prevention (ED) Additional Instructions: As we discussed, no broken bones or bleeding in her brain. You are likely to be sore and achy over the next several days. Acetaminophen/Tylenol (maximum 4000 mg per day) is safe to take with NSAIDs (ibuprofen/Motrin) for pain relief. Follow-up with primary care physician. Return to the emergency department with any new or worsening symptoms. Rest and resume activities as tolerated. Patient Language: Bulgarian Prescriptions: New ibuprofen 600 mg tablet 600 mg PO TID PRN (Reason: pain) Qty: 30 0RF acetaminophen 500 mg capsule 1,000 mg PO Q6H PRN (Reason: pain) Qty: 30 0RF Follow-up/Referrals: PHYSICIAN NOT ON STAFF,NONSTAFF [Primary Care Provider] - Stand Alone Forms: Work/School Release IP Time of Disposition: 22:40
[2024-09-23] MEDS: ACETAMINOPHEN 500 MG TABLET 1000 MG PO (22:47)
[2024-09-23] MEDS: KETOROLAC 30 MG/ML VIAL (*BKC) IM (22:48)
== END 2024-09-23 23:10 | disposition home or self-care (01) ==
PROVIDERS: Emergency Provider Student in an Organized Health Care Education/Training Program
DX: S06.0X0A Concussion without loss of consciousness, initial encounter (principal); W19.XXXA Unspecified fall, initial encounter
CPT/HCPCS: 70450; 72125; 96372; 99284; A9270; J1885